=== PATIENT | male | born 1945 | race Caucasian/White ===

== ENCOUNTER 2020-05-25 09:53 | Inpatient (IN) | payer MEDICARE, BC ==
[~2020-05-25] VITALS: Ht 177.8 cm; Wt 68.6 kg
--- NOTE | 2020-05-25 10:10 | NUR ---
patient came in to the er c/o "Been Sick X1wk Dx COVID positive sunday NOW worse coughing a lot. 845 on room air. on 02 @4lpm via nc. Connected to the monitor and pulse ox, kept comfortable, will continue to monitor accordingly.
[2020-05-25] MEDS ORDERED: ACETAMINOPHEN ES 500 MG TABLET ONE (10:55)
[2020-05-25] MEDS ORDERED: IV NS 0.9% 500 ML IV SCH (11:00)
[2020-05-25] MEDS ORDERED: ACETAMINOPHEN ES 500 MG TABLET PO ONE (11:00)
[2020-05-25 11:20] LABS: MEAN CORPUSCULAR VOLUME 89 fL (80-96)
[2020-05-25 11:23] LABS: BASOPHILS % (AUTO) 0.1 % (0.0-2.0); HEMATOCRIT 42 % (39-51); LYMPHOCYTES # (AUTO) 0.2 /CMM (0.8-4.8); MEAN CORPUSCULAR HGB CONC 33 g/dl (31.0-36.0); MONOCYTES # (AUTO) 0.5 /CMM (0.1-1.30); MONOCYTES % (AUTO) 6.4 % (2.0-12.0); NEUTROPHILS # (AUTO) 7.5 /CMM (1.8-8.9); NEUTROPHILS % (AUTO) 91.5 % (43.0-81.0); PLATELET COUNT (AUTO) 191 /CMM (150-450); RED BLOOD CELL COUNT(AUTO) 4.72 MIL/uL (4.5-6.0); WHITE BLOOD COUNT (AUTO) 8.1 K/uL (4.3-11.0)
[2020-05-25 11:25] LABS: CALCIUM, SERUM 8.6 mg/dL (8.5-10.1); CARBON DIOXIDE 26 mmol/L (21-32); CHLORIDE 103 mmol/L (98-107); CREATININE 1.7 mg/dL (0.6-1.3); GLUCOSE 182 mg/dL (74-106); SODIUM SERUM 139 mmol/L (136-145); UREA NITROGEN, BLOOD 38 mg/dL (7-18)
[2020-05-25 11:36] LABS: BILIRUBIN,TOTAL 0.6 mg/dL (0.2-1.0)
[2020-05-25 11:37] LABS: ALANINE AMINOTRANSFERASE 53 U/L (12-78); ALBUMIN 3.3 g/dL (3.4-5.0); ALKALINE PHOSPHATASE 51 U/L (46-116); ASPARTATE AMINOTRANSFERASE 38 U/L (15-37); B-TYPE NATRIURETIC PEPTIDE 971 PG/ML (0-125); TOTAL PROTEIN, SERUM 7.4 g/dL (6.4-8.2)
--- NOTE | 2020-05-25 11:38 | NUR ---
LACTIC ACID 2.4
--- NOTE | 2020-05-25 11:51 | NUR ---
PT WANTS DAUGHTER, THOMAS, TO BE UPDATED.
[2020-05-25 11:56] LABS: CREATINE KINASE, TOTAL 140 U/L (39-308); FERRITIN 765 ng/mL (8-388)
[2020-05-25 11:57] LABS: D-DIMER 0.85 mg/L(FEU (0.17-0.50)
[2020-05-25] MEDS ORDERED: IV NS 0.9% 500 ML IV ONE (12:00)
[2020-05-25 12:04] LABS: C-REACTIVE PROTEIN 3.9 mg/dL (0.0-0.9)
[2020-05-25] MEDS ORDERED: IV NS 0.9% 1,000 ML BAG IV ONE (13:30)
[2020-05-25 13:56] LABS: BILIRUBIN,DIRECT 0.2 mg/dL (0.0-0.2)
[2020-05-25] MEDS ORDERED: DEXAMETHASONE SOD PHOSPHATE 6 MG in IV D5W 50 ML IV SCH (14:00)
[2020-05-25] MEDS ORDERED: IV NS 0.9% 1,000 ML IV PRN (14:00)
[2020-05-25] MEDS: CEFTRIAXONE 1 G in IV D5W 50 ML IV SCH (14:00)
[2020-05-25] MEDS ORDERED: ALBUTEROL SULFATE 8 GM HFA.AER.AD IH PRN (14:00)
[2020-05-25] MEDS ORDERED: ACETAMINOPHEN 650 MG/SUPP.RECT RC PRN (14:00)
[2020-05-25] MEDS ORDERED: ONDANSETRON 4 MG TAB.RAPDIS SL PRN (14:00)
[2020-05-25 14:25] LABS: BILIRUBIN,URINE Negative (NEGATIVE); COLOR,URINE YELLOW (YELLOW); LEUKOCYTE ESTERASE ,URINE Negative (NEGATIVE); NITRITE, URINE Negative (NEGATIVE); PROTEIN,URINE 100 mg/dl (NEGATIVE); UGLUCOSE 100 MG/DL mg/dL (NEGATIVE); UROBILINOGEN,URINE 0.2 EU/dL (0.2)
[2020-05-25 14:26] LABS: BACTERIA,URINE None seen /HPF (None Seen); RBC,URINE 0-2 /HPF (0-2); WBC,URINE 0-2 /HPF (0-3)
[2020-05-25 14:27] LABS: SQUAMOUS EPITHELIAL CELL,UR None Seen /HPF (None Seen)
[2020-05-25] MEDS ORDERED: DEXAMETHASONE SOD PHOSPHATE 10 MG/ML VIAL IV SCH (14:30)
[2020-05-25] MEDS: AZITHROMYCIN 500 MG in IV D5W 250 ML IV SCH (14:31)
--- NOTE | 2020-05-25 16:49 | NUR ---
LEILA IS DAUGHTER [phone]
[2020-05-25] MEDS ORDERED: DEXAMETHASONE SOD PHOSPHATE 10 MG/ML VIAL ONE (17:04)
[2020-05-25] MEDS: DEXAMETHASONE SOD PHOSPHATE 10 MG/ML VIAL IV SCH (17:10)
[2020-05-25] MEDS ORDERED: GUAIFENESIN/D-METHORPHAN HB 5 ML UDC ONE (18:39)
[2020-05-25] MEDS: GUAIFENESIN/CODEINE 10 ML UDC PO PRN (18:42)
[2020-05-25] MEDS ORDERED: ENOXAPARIN SODIUM 30 MG/0.3 ML DISP.SYRIN SQ SCH (19:00)
[2020-05-25] MEDS ORDERED: ZOLPIDEM TARTRATE 5 MG TABLET PO ONE ×2 (19:00)
--- NOTE | 2020-05-25 19:37 | NUR ---
report given to Conor GROVER for liat
--- NOTE | 2020-05-25 19:45 | NUR ---
emptied out urine, 350mL
--- NOTE | 2020-05-25 19:48 | NUR ---
Patient is AAOX4. NO SOB. BREATHING EVENLY AND UNLABORED ON 3l of n/c. tolerating well at 95%. patient is connected to the monitor. Patient is asking for cough medication. Patient explained to unable to give patient cough medication because he is not due for one yet. Patient verbalizes understanding.
[2020-05-25] MEDS ORDERED: ENOXAPARIN SODIUM 30 MG/0.3 ML DISP.SYRIN ONE (20:25)
--- NOTE | 2020-05-25 22:59 | NUR ---
emptied out urine 200mL
--- NOTE | 2020-05-26 01:12 | NUR ---
TELE 207-2
--- NOTE | 2020-05-26 02:33 | NUR ---
REPORT GIVEN TO MALORIE GROVER FOR CONTINUITY OF CARE.
[2020-05-26 02:55] VITALS: BP 145/86
--- NOTE | 2020-05-26 02:55 | NUR ---
FLOORWORKER DISTRIBUTORTRAFFIC RATE CLERK NOTE RECEIVED PATIENT VIA GURNEY. AMBULATED TO BED WITH ASSISTANCE. A/OX4. ON OXYGEN 6L/MIN VIA NASAL CANNULA. RESPIRATIONS ARE EVEN AND UNLABORED. O2 SATURATION IS 86%. PLACED PATIENT ON NONREBREATHER 15L/MIN NOW SATURATING 96%. WILL INFORM MD OF CHANGE IN CONDITION. NO C/O PAIN AT THIS TIME. PATIENT IS REQUESTING ROBITUSSIN. EXTERNAL TELE MONITOR PLACED AND READ SINUS RHYTHM WITH BBB HR 62. IN NO APPARENT DISTRESS AT THIS TIME. IV ACCESS IN LAC #18 PATENT AND SALINE LOCKED. BUILDING MAINTENANCE SUPERVISOR OBTAINED VITALS AND COMPLETED BELONGINGS LIST. INITIAL PHYSICAL ASSESSMENT COMPLETED, SKIN ASSESSMENT COMPLETED, PHOTOS TAKEN AND PLACED IN CHART. BED IS LOW AND LOCKED, HOB ELEVATED IN HIGH FOWLERS, SIDE RIALS UP X2, CALL LIGHT WITHIN REACH. INFORMED DIE TRY OUT WORKER STAMPING LIGHT USE. WILL CONTINUE TO MONITOR THROUGHOUT SHIFT.
--- NOTE | 2020-05-26 03:06 | NUR ---
PATIENT TAKEN UP TO ASSIGNED ROOM FOR TIMOTEO.
[2020-05-26] MEDS: GUAIFENESIN/CODEINE 10 ML UDC PO PRN ×2 (03:29→14:03)
--- NOTE | 2020-05-26 03:30 | NUR ---
TELE/RN NOTES PATIENT COMPLAINING OF COUGH AND IS REQUESTING FOR COUGH MEDICINE. PATIENT GIVEN ROBITUSSIN AC SYRUP 10 ML PO. PATIENT IN NO SIGNS OF DISTRESS.
--- NOTE | 2020-05-26 04:03 | NUR ---
singing telegram performer note informed jose elias maynard DNP that ER reported patient is on 6l nasal cannula saturating 92%, when patient arrive to unit he was saturating 86% on 6L nasal cannula. informed Jose Elias that patient is now on 15L nonrebreather saturating 96%. aware, no new orders received.
[2020-05-26] MEDS ORDERED: ATOR20TA PO (04:17)
[2020-05-26] MEDS ORDERED: OLME40TA12 PO (04:17)
[2020-05-26 04:30] VITALS: BP 145/86
[2020-05-26 06:45] LABS: BASOPHILS % (AUTO) 0.1 % (0.0-2.0); HEMATOCRIT 37 % (39-51); HEMOGLOBIN 12.4 g/dL (13.5-17.5); LYMPHOCYTES # (AUTO) 0.3 /CMM (0.8-4.8); LYMPHOCYTES % (AUTO) 2.8 % (20.0-44.0); MEAN CORPUSCULAR HGB CONC 33 g/dl (31.0-36.0); MEAN CORPUSCULAR VOLUME 88 fL (80-96); MONOCYTES # (AUTO) 0.5 /CMM (0.1-1.30); NEUTROPHILS % (AUTO) 91.1 % (43.0-81.0); PLATELET COUNT (AUTO) 199 /CMM (150-450); RED BLOOD CELL COUNT(AUTO) 4.24 MIL/uL (4.5-6.0); WHITE BLOOD COUNT (AUTO) 8.8 K/uL (4.3-11.0)
--- NOTE | 2020-05-26 07:13 | NUR ---
HIDE OR SKIN BUFFER CLOSING NOTE PATIENT RESTING IN BED. A/OX4. ON OXYGEN 15L NONREBREATHER. NO RESP DISTRESS. NO C/O PAIN . EXTERNAL TELE MONITOR PLACED AND READ SINUS RHYTHM. NO DISTRESS. IV ACCESS MAINTAINED IN LAC #18 RUNNING NS@50ML/HR BED IS LOW AND LOCKED, HOB ELEVATED IN HIGH FOWLERS, SIDE RIALS UP X2, CALL LIGHT WITHIN REACH. INFORMED SYSTEMS COORDINATOR LIGHT USE. WILL ENDORSE TO NEXT SHIFT.
[2020-05-26 07:17] LABS: ALBUMIN 2.7 g/dL (3.4-5.0); BILIRUBIN,TOTAL 0.5 mg/dL (0.2-1.0); CALCIUM, SERUM 8.2 mg/dL (8.5-10.1); CREATININE 1.3 mg/dL (0.6-1.3); POTASSIUM 4.4 mmol/L (3.5-5.1); TOTAL PROTEIN, SERUM 6.3 g/dL (6.4-8.2)
--- NOTE | 2020-05-26 07:50 | NUR ---
PROGRAM ATTENDANT OPENING NOTE PATIENT IS IN BED RESTING. PATIENT IS IN NO ACUTE DISTRESS. PATIENT IS ON 15L NON REBREATHER MASK. NO SOB NOTED. HOB ELEVATED. PATIENT IS ON TELE MONITOR READING SR 64 BBB. SAFETY PRECAUTIONS ARE IN PLACE. BED IS LOCKED AND IN THE LOWEST POSITION. SIDE RAILS ARE UP. CALL LIGHT WITHIN REACH. CONTINUE CLOSELY MONITORING PATIENT THOUGHT OUT THE SHIFT.
--- NOTE | 2020-05-26 08:42 | NUR ---
WOUND CARE CONSULT: REVIEWED CHART, NURSING DOCUMENTATION AND PHOTO WHICH INDICATES LOWER LEG DISCOLORATION,PRESENT ON ADMISSION. CURRENT DEJA SCORE IS 20. WILL SEE PRN.
[2020-05-26] MEDS: DEXAMETHASONE SOD PHOSPHATE 10 MG/ML VIAL IV SCH (08:56)
[2020-05-26] MEDS ORDERED: REMDESIVIR (CHARGED) 200 MG, *LOADING DOSE 1 EA in IV NS 0.9% 210 ML IV ONE (11:00)
[2020-05-26] MEDS: ENOXAPARIN SODIUM 30 MG/0.3 ML DISP.SYRIN SQ SCH ×2 (11:12→20:31)
[2020-05-26] MEDS: ATORVASTATIN 10 MG TABLET PO SCH (12:24)
[2020-05-26] MEDS: LOSARTAN POTASSIUM 50 MG TABLET PO SCH (12:25)
[2020-05-26] MEDS ORDERED: GUAIFENESIN 300 MG/15 ML UDC PO PRN (12:30)
[2020-05-26] MEDS: CEFTRIAXONE 1 G in IV D5W 50 ML IV SCH (13:44)
[2020-05-26] MEDS: AZITHROMYCIN 500 MG in IV D5W 250 ML IV SCH (14:49)
[2020-05-26 17:20] VITALS: BP 142/79
[2020-05-26 17:35] VITALS: BP 159/85
--- NOTE | 2020-05-26 18:59 | NUR ---
DELIVERY MAN CLOSING NOTE PATIENT KEPT CLEAN AND DRY THOROUGH OUT THE SHIFT. NO SIGNS OF CUTE DISTRESS NOTED. PATIENT IS ON OXYGEN 15L NRB MASK. HOB ELEVATED. PATIENT IS ON JOB ORDER CLERK READING SR. SAFETY PRECAUTIONS ARE IN PLACE. BED IS LOCKED AND IN LOWEST POSITION. SIDE RAILS ARE UP, CALL LIGHT WITHIN REACH. ENDORSE PATIENT FOR CONTINUES CARE TO TEST ENGINEERING MANAGER NURSE.
--- NOTE | 2020-05-26 19:00 | NUR ---
RN NOTE RECEIVED PATIENT IN BED, ON HIGH BOWEN'S, AO X 3-4. PATIENT IN NO S/SX OF ACUTE DISTRESS AT THIS TIME. PATIENT'S BREATHING IS EVEN AND UNLABORED. PATIENT IS ON 15 L OF OXYGEN VIA NON REBREATHER MASK, TOLERATING WELL, OXYGEN SATURATION IS AT 94%. PATIENT ON TELE MONITOR READING SR WITH BBB, HR IS 63. PATIENT IS AMBULATORY WITH ASSISTANCE. NOTED IV SITE AT LAC 18G, PATENT AND FLUSHING WELL, NO S/S OF INFECTION OR INFILTRATION. SAFETY MEASURES IMPLEMENTED PER PROTOCOL. PATIENT BED ALARM IS ON. HEAD OF BED ELEVATED. BED IS LOCKED, IN LOWEST POSITION AND SIDE RAILS UP. CALL LIGHT WITHIN REACH OF THE PATIENT. WILL CONTINUE TO MONITOR AND REASSESS FOR ANY CHANGES.
[2020-05-26 20:00] VITALS: BP 167/79
--- NOTE | 2020-05-26 20:00 | NUR ---
RN NOTE NOTED BP OF 167/79. COMFORT MEASURES PROVIDED. HOB ELEVATED. BP RECHECKED AND RESULTED, 150/94.
[2020-05-27] VITALS (8 sets, daily range): BP systolic 103–167; BP diastolic 65–90
--- NOTE | 2020-05-27 00:30 | NUR ---
RN NOTE NOTED BP OF 167/81 AT 0000 AFTER AMBULATING TO THE RESTROOM. NO COMPLAINTS OF PAIN. NO SIGN OF DISTRESS NOTED. BP RECHECKED AT 0030 AND REVEALED 144/88.
[2020-05-27 07:53] LABS: HEMATOCRIT 39 % (39-51); HEMOGLOBIN 12.9 g/dL (13.5-17.5); LYMPHOCYTES # (AUTO) 0.4 /CMM (0.8-4.8); MEAN CORPUSCULAR HGB CONC 33 g/dl (31.0-36.0); MEAN CORPUSCULAR VOLUME 90 fL (80-96); MONOCYTES # (AUTO) 0.7 /CMM (0.1-1.30); MONOCYTES % (AUTO) 6.6 % (2.0-12.0); NEUTROPHILS # (AUTO) 9.5 /CMM (1.8-8.9); NEUTROPHILS % (AUTO) 89.4 % (43.0-81.0); PLATELET COUNT (AUTO) 218 /CMM (150-450); RED BLOOD CELL COUNT(AUTO) 4.35 MIL/uL (4.5-6.0); WHITE BLOOD COUNT (AUTO) 10.7 K/uL (4.3-11.0)
--- NOTE | 2020-05-27 08:00 | NUR ---
PLUMBER HELPER OPENING NOTE PATIENT IS IN BED RESTING. PATIENT IS IN NO ACUTE DISTRESS. PATIENT IS ON 15L NON REBREATHER MASK. WITH SOB WHEN GOING TO THE TOILET WITH O2 NRB MASK AT 15L.NO SOB NOTED WHEN AT REST BUT DESATURATES TO 85-88%. HOB ELEVATED. PATIENT IS ON TELE MONITOR READING SR 74 BBB. SAFETY PRECAUTIONS ARE IN PLACE. BED IS LOCKED AND IN THE LOWEST POSITION. SIDE RAILS ARE UP. CALL LIGHT WITHIN REACH. CONTINUE CLOSELY MONITORING
[2020-05-27 08:19] LABS: ALBUMIN 2.6 g/dL (3.4-5.0); BILIRUBIN,DIRECT 0.2 mg/dL (0.0-0.2); BILIRUBIN,TOTAL 0.5 mg/dL (0.2-1.0); CALCIUM, SERUM 8.6 mg/dL (8.5-10.1); CREATININE 1.2 mg/dL (0.6-1.3); POTASSIUM 4.2 mmol/L (3.5-5.1); TOTAL PROTEIN, SERUM 6.4 g/dL (6.4-8.2)
[2020-05-27] MEDS: LOSARTAN POTASSIUM 50 MG TABLET PO SCH (10:19)
[2020-05-27] MEDS: DEXAMETHASONE SOD PHOSPHATE 10 MG/ML VIAL IV SCH (10:19)
[2020-05-27] MEDS: ATORVASTATIN 10 MG TABLET PO SCH (10:19)
[2020-05-27] MEDS: ENOXAPARIN SODIUM 30 MG/0.3 ML DISP.SYRIN SQ SCH ×2 (10:22→20:32)
[2020-05-27] MEDS: GUAIFENESIN/CODEINE 10 ML UDC PO PRN (10:25)
--- NOTE | 2020-05-27 12:00 | NUR ---
TRIED FEEDING PT WITH O2 NASAL CANNULA AT 15L AND PT DESATURATES AT 70%.PLACED PT BACK TO NRB MASK AT 15L IN BETWEEN FEEDINGS
[2020-05-27] MEDS: REMDESIVIR (CHARGED) 100 MG in IV NS 0.9% 100 ML IV SCH (12:33)
[2020-05-27] MEDS: CEFTRIAXONE 1 G in IV D5W 50 ML IV SCH (14:03)
[2020-05-27] MEDS: AZITHROMYCIN 500 MG in IV D5W 250 ML IV SCH (15:26)
--- NOTE | 2020-05-27 16:00 | NUR ---
ATTEMPTED TO TITRATE PT'S O2 NRB TO 13L AND PT DESATURATES TO 82%.PLACE PT BACK TO 15 LITERS NRB MASK
--- NOTE | 2020-05-27 18:00 | NUR ---
NOTIFIED SUSY HOLDER OF PT'S BP 164/90 HR 77 WITH NO NEW ORDER.
[2020-05-27] MEDS ORDERED: hydrALAZINE HCL 10 MG TABLET PO PRN (19:30)
--- NOTE | 2020-05-27 19:35 | NUR ---
TELE/RN OPENING NOTES: RECEIVED PATIENT IN BED, ON HIGH BOWEN'S, VERBALLY RESPONSIVE AND ABLE TO MAKE NEEDS KNOWN. A/O X 4. NO S/S OF ACUTE DISTRESS AT THIS TIME. PATIENT'S BREATHING IS EVEN AND UNLABORED. CURRENTLY ON 15 L OF OXYGEN VIA NON REBREATHER MASK, TOLERATING WELL, OXYGEN SATURATION IS AT 92%. PATIENT ON TELE MONITOR READING SR HR ON THE 60S. PATIENT IS AMBULATORY WITH ASSISTANCE. PER DAY SHIFT RN, AFTER AMBULATING PATIENT DESATS TO 89%-88%. IV SITE AT LAC 18G, PATENT AND FLUSHING WELL, NO S/S OF INFECTION OR INFILTRATION. SAFETY MEASURES IMPLEMENTED PER PROTOCOL. BED ALARM IS ON. HEAD OF BED ELEVATED. BED IS LOCKED, IN LOWEST POSITION AND SIDE RAILS UP. CALL LIGHT WITHIN REACH OF THE PATIENT. WILL CONTINUE TO MONITOR AND REASSESS FOR ANY CHANGES.
[2020-05-28] VITALS (7 sets, daily range): BP systolic 108–172; BP diastolic 74–93
--- NOTE | 2020-05-28 07:10 | NUR ---
RN OPENING NOTES RECEIVED PT RESTING IN BED AT THIS TIME. PT IS AOX2-3. NO SOB NOTED, NO S/S OF ANY APPARENT DISTRESS NOTED. NO C/O PAIN NOTED AT THIS TIME. RESPIRATIONS ARE EVEN AND UNLABORED. FLOW OXYGEN AT 60LPM WITH FIO2 @ 100%.PT NOTED ON 15LPM NON REBREATHER SATURATING IN THE 90S. PT ON EXTERNAL FOREIGN LANGUAGE INSTRUCTOR READING SR IN THE 80s. IV ACCESS NOTED IN LAC G#18, INTACT, PATENT AND FLUSHING WELL. ASPIRATION AND SAFETY PRECAUTION IN PLACE AND MAINTAINED AT ALL TIMES. BED IN LOWEST LOCKED POSITION, HOB ELEVATED, SIDE RAILS UP X 2, CALL LIGHT AND TABLE WITHIN REACH . WILL CONTINUE WITH PLAN OF CARE. Addendum: 05/28/20 at 2012 by MATTHEW CHINO RN RN OPENING NOTES RECEIVED PT AWAKE IN BED AT THIS TIME. PT IS AOX4. PT ABLE TO VERBALIZE NEEDS. NO SOB NOTED, NO S/S OF ANY APPARENT DISTRESS NOTED. NO C/O PAIN NOTED AT THIS TIME. RESPIRATIONS ARE EVEN AND UNLABORED. PT NOTED ON 15LPM NON REBREATHER. PT ON EXTERNAL FOREIGN LANGUAGE INSTRUCTOR READING SR IN THE 60s. IV ACCESS NOTED IN LAC G#18, INTACT, PATENT AND FLUSHING WELL. ASPIRATION AND SAFETY PRECAUTION IN PLACE AND MAINTAINED AT ALL TIMES. BED IN LOWEST LOCKED POSITION, HOB ELEVATED, SIDE RAILS UP X 2, CALL LIGHT AND TABLE WITHIN REACH . WILL CONTINUE TO MONITOR
--- NOTE | 2020-05-28 07:11 | NUR ---
TELE/RN CLOSING NOTES: PT REMAINED STABLE THROUGHOUT THE SHIFT. NO SIGNIFICANT CHANGES IN CONDITION. ALL NURSING NEEDS MET AND RENDERED. WILL CONTINUE PLAN OF CARE AND ENDORSE TO DAYSHIFT FOR TIM[facility].
[2020-05-28 07:43] LABS: BASOPHILS % (AUTO) 0.3 % (0.0-2.0); HEMATOCRIT 42 % (39-51); HEMOGLOBIN 14.1 g/dL (13.5-17.5); LYMPHOCYTES # (AUTO) 0.3 /CMM (0.8-4.8); LYMPHOCYTES % (AUTO) 2.8 % (20.0-44.0); MEAN CORPUSCULAR HGB CONC 33 g/dl (31.0-36.0); MEAN CORPUSCULAR VOLUME 88 fL (80-96); MONOCYTES # (AUTO) 0.9 /CMM (0.1-1.30); MONOCYTES % (AUTO) 8.2 % (2.0-12.0); NEUTROPHILS # (AUTO) 9.3 /CMM (1.8-8.9); NEUTROPHILS % (AUTO) 88.7 % (43.0-81.0); PLATELET COUNT (AUTO) 248 /CMM (150-450); RED BLOOD CELL COUNT(AUTO) 4.81 MIL/uL (4.5-6.0); WHITE BLOOD COUNT (AUTO) 10.4 K/uL (4.3-11.0)
[2020-05-28 08:19] LABS: ALBUMIN 2.5 g/dL (3.4-5.0); BILIRUBIN,DIRECT 0.3 mg/dL (0.0-0.2); BILIRUBIN,TOTAL 0.6 mg/dL (0.2-1.0); CREATININE 1.2 mg/dL (0.6-1.3); POTASSIUM 4.4 mmol/L (3.5-5.1); TOTAL PROTEIN, SERUM 6.6 g/dL (6.4-8.2)
[2020-05-28] MEDS: LOSARTAN POTASSIUM 50 MG TABLET PO SCH (09:36)
[2020-05-28] MEDS: ENOXAPARIN SODIUM 30 MG/0.3 ML DISP.SYRIN SQ SCH ×2 (09:37→21:49)
[2020-05-28] MEDS: DEXAMETHASONE SOD PHOSPHATE 10 MG/ML VIAL IV SCH (09:37)
[2020-05-28] MEDS: ATORVASTATIN 10 MG TABLET PO SCH (09:37)
[2020-05-28] MEDS: REMDESIVIR (CHARGED) 100 MG in IV NS 0.9% 100 ML IV SCH (11:24)
[2020-05-28] MEDS: ACETAMINOPHEN 325 MG TABLET PO PRN (13:07)
--- NOTE | 2020-05-28 13:10 | NUR ---
PT C/O OF BACK PAIN OF 3/10 AT THIS TIME, VS WNL. PER PT REQUEST, TYLENOL 650MG PO Q6H PRN ADMINISTERED AT THIS TIME PER ORDER, WILL CONTINUE TO MONITOR
[2020-05-28] MEDS: CEFTRIAXONE 1 G in IV D5W 50 ML IV SCH (14:17)
[2020-05-28] MEDS: AZITHROMYCIN 500 MG in IV D5W 250 ML IV SCH (15:23)
--- NOTE | 2020-05-28 19:10 | NUR ---
RN CLOSING NOTES PT AWAKE IN BED AT THIS TIME. PT REMAINED STABLE THROUGHOUT SHIFT. PT's CARE, NEEDS, MEDICATIONS AND TREATMENT ADMINISTERED ANTICIPATED PER ORDER. PT MOTIVATED TO SELF CARE AND ASSISTED TO BATHROOM. SAFETY PRECAUTION IN PLACE AND MAINTAINED AT ALL TIMES. BED IN LOWEST LOCKED POSITION, HOB ELEVATED, SIDE RAILS UP X 2, CALL LIGHT AND TABLE WITHIN REACH. WILL ENDORSE TO SLATE SPLITTING SUPERVISOR NURSE FOR TIMOTEO
--- NOTE | 2020-05-28 19:11 | NUR ---
TELE/RN OPENING NOTES: RECEIVED PATIENT IN BED, ON HIGH BOWEN'S, VERBALLY RESPONSIVE AND ABLE TO MAKE NEEDS KNOWN. A/O X 4. NO S/S OF ACUTE DISTRESS AT THIS TIME. PATIENT'S BREATHING IS EVEN AND UNLABORED. CURRENTLY ON 15 L OF OXYGEN VIA NON REBREATHER MASK, TOLERATING WELL, OXYGEN SATURATION IS AT 95%. PATIENT ON TELE MONITOR READING SR HR ON THE 60S. COMPLAINS OF MILD PAIN, DOESN'T ASK FOR PAIN MEDS AT THIS TIME. PATIENT IS AMBULATORY WITH ASSISTANCE. IV SITE AT LAC 18G, PATENT AND FLUSHING WELL, NO S/S OF INFECTION OR INFILTRATION. SAFETY MEASURES IMPLEMENTED PER PROTOCOL. BED ALARM IS ON. HEAD OF BED ELEVATED. BED IS LOCKED, IN LOWEST POSITION AND SIDE RAILS UP. CALL LIGHT WITHIN REACH OF THE PATIENT. WILL CONTINUE TO MONITOR AND REASSESS FOR ANY CHANGES.
[2020-05-29] VITALS: BP 185/80
[2020-05-29 04:00] VITALS: BP 124/85
--- NOTE | 2020-05-29 06:19 | NUR ---
TELE/RN OPENING NOTES: RECEIVED PT AWAKE IN BED AT THIS TIME. PT IS AOX4. PT ABLE TO MAKE NEEDS KNOWN. NO SOB NOTED, NO S/S OF ANY ACUTE DISTRESS NOTED. NO C/O PAIN AT THIS TIME. RESPIRATIONS ARE EVEN AND UNLABORED. PT NOTED ON 15LPM NON REBREATHER SATING AT 93%. PT ON EXTERNAL SENIOR STACK ENGINEER READING SR WITH BBB 63. IV ACCESS NOTED IN LAC G#18, INTACT, PATENT AND FLUSHING WELL. ASPIRATION, REPIRATORY AND SAFETY PRECAUTION IN PLACE AND MAINTAINED AT ALL TIMES. BED IN LOWEST LOCKED POSITION, HOB ELEVATED, SIDE RAILS UP X 2, CALL LIGHT AND TABLE WITHIN REACH . WILL CONTINUE TO MONITOR
--- NOTE | 2020-05-29 07:10 | NUR ---
RN OPENING NOTES RECEIVED PT AWAKE IN BED AT THIS TIME. PT IS AOX4. PT ABLE TO MAKE NEEDS KNOWN. NO SOB NOTED, NO S/S OF ANY ACUTE DISTRESS NOTED. NO C/O PAIN AT THIS TIME. RESPIRATIONS ARE EVEN AND UNLABORED. PT NOTED ON 15LPM NON REBREATHER. PT ON EXTERNAL EGG SORTER READING SR WITH PVCS 78. IV ACCESS NOTED IN LAC G#18, INTACT, PATENT AND FLUSHING WELL. ASPIRATION, REPIRATORY AND SAFETY PRECAUTION IN PLACE AND MAINTAINED AT ALL TIMES. BED IN LOWEST LOCKED POSITION, HOB ELEVATED, SIDE RAILS UP X 2, CALL LIGHT AND TABLE WITHIN REACH . WILL CONTINUE TO MONITOR
--- NOTE | 2020-05-29 07:10 | NUR ---
RN OPENING NOTES RECEIVED PT AWAKE IN BED AT THIS TIME. PT IS AOX4. PT ABLE TO MAKE NEEDS KNOWN. NO SOB NOTED, NO S/S OF ANY ACUTE DISTRESS NOTED. NO C/O PAIN AT THIS TIME. RESPIRATIONS ARE EVEN AND UNLABORED. PT NOTED ON 15LPM NON REBREATHER. PT ON EXTERNAL MANAGER LABOR RELATIONS READING SR WITH PVCS 78. IV ACCESS NOTED IN LAC G#18, INTACT, PATENT AND FLUSHING WELL. ASPIRATION, RESPIRATORY AND SAFETY PRECAUTION IN PLACE AND MAINTAINED AT ALL TIMES. BED IN LOWEST LOCKED POSITION, HOB ELEVATED, SIDE RAILS UP X 2, CALL LIGHT AND TABLE WITHIN REACH . WILL CONTINUE TO MONITOR
--- NOTE | 2020-05-29 07:52 | NUR ---
TELE/RN CLOSING NOTES: PT REMAINED STABLE THROUGHOUT THE SHIFT. WILL CONTINUE TO TITRATE PATIENT TOLERATED. ALL DUE MEDS GIVEN ORDERED. NO SIGNIFICANT CHANGES IN CONDITION. ALL NURSING NEEDS MET AND RENDERED. WILL CONTINUE PLAN OF CARE. SAFETY MEASURES IN PLACE. BED IN LOW, LOCKED POSITION WITH SR UPX2. ENDORSE TO DAYSHIFT FOR TIMOTE[facility].
[2020-05-29 08:00] VITALS: BP 166/95
[2020-05-29 08:30] LABS: BASOPHILS % (AUTO) 0.2 % (0.0-2.0); HEMATOCRIT 42 % (39-51); HEMOGLOBIN 13.6 g/dL (13.5-17.5); LYMPHOCYTES # (AUTO) 0.4 /CMM (0.8-4.8); LYMPHOCYTES % (AUTO) 3.9 % (20.0-44.0); MEAN CORPUSCULAR HGB CONC 32 g/dl (31.0-36.0); MEAN CORPUSCULAR VOLUME 90 fL (80-96); MONOCYTES # (AUTO) 1.1 /CMM (0.1-1.30); NEUTROPHILS # (AUTO) 9.5 /CMM (1.8-8.9); NEUTROPHILS % (AUTO) 85.9 % (43.0-81.0); PLATELET COUNT (AUTO) 255 /CMM (150-450); RED BLOOD CELL COUNT(AUTO) 4.68 MIL/uL (4.5-6.0)
[2020-05-29] MEDS: LOSARTAN POTASSIUM 50 MG TABLET PO SCH (09:53)
[2020-05-29] MEDS: ATORVASTATIN 10 MG TABLET PO SCH (09:53)
[2020-05-29] MEDS: DEXAMETHASONE SOD PHOSPHATE 10 MG/ML VIAL IV SCH (09:53)
[2020-05-29] MEDS: ENOXAPARIN SODIUM 30 MG/0.3 ML DISP.SYRIN SQ SCH ×2 (09:54→21:36)
[2020-05-29 10:24] LABS: ALBUMIN 2.3 g/dL (3.4-5.0); BILIRUBIN,DIRECT 0.2 mg/dL (0.0-0.2); BILIRUBIN,TOTAL 0.6 mg/dL (0.2-1.0); CALCIUM, SERUM 8.6 mg/dL (8.5-10.1); CREATININE 1.3 mg/dL (0.6-1.3); POTASSIUM 4.6 mmol/L (3.5-5.1); TOTAL PROTEIN, SERUM 6.2 g/dL (6.4-8.2)
[2020-05-29] MEDS: REMDESIVIR (CHARGED) 100 MG in IV NS 0.9% 100 ML IV SCH (12:15)
[2020-05-29] MEDS: ACETAMINOPHEN 325 MG TABLET PO PRN ×2 (13:19→21:31)
--- NOTE | 2020-05-29 13:20 | NUR ---
PT C/O OF GENERALIZED PAIN OF 3/10 AT THIS TIME, VS WNL. PER PT REQUEST, TYLENOL 650MG PO Q6H PRN ADMINISTERED AT THIS TIME PER ORDER, WILL CONTINUE TO MONITOR
[2020-05-29] MEDS: CEFTRIAXONE 1 G in IV D5W 50 ML IV SCH (14:28)
[2020-05-29] MEDS: AZITHROMYCIN 500 MG in IV D5W 250 ML IV SCH (15:28)
[2020-05-29 17:25] LABS: ABG BASE EXCESS -0.9 mmol/L; ABG OXYGEN SATURATION 93.2 % (92.0-98.5); ABG PCO2 32.4 mmHg (35.0-45.0); ABG PH 7.453 (7.350-7.450); ABG PO2 65.6 mmHg (75.0-100.0); COHb 0.3 % (0.5-1.5); MetHb 0.4 % (0.0-1.5); O2Hb 92.5 % (94.0-97.0); SITE, ABG Right Radial; VENT MODE, BG NRB
[2020-05-29] MEDS: LISINOPRIL (10MG) 10 MG TABLET PO SCH (17:58)
--- NOTE | 2020-05-29 19:24 | NUR ---
TELE/RN OPENING NOTES: RECEIVED PT AWAKE IN BED AT THIS TIME. PT IS AOX4. PT ABLE TO MAKE NEEDS KNOWN. NO SOB NOTED, NO S/S OF ANY ACUTE DISTRESS NOTED. NO C/O PAIN AT THIS TIME. RESPIRATIONS ARE EVEN AND UNLABORED. PT NOTED ON 15LPM NON REBREATHER SATING AT 93%. PT ON EXTERNAL KILN CLEANER READING SR WITH BBB 63. IV ACCESS NOTED IN LAC G#18, INTACT, PATENT AND FLUSHING WELL. ASPIRATION, REPIRATORY AND SAFETY PRECAUTION IN PLACE AND MAINTAINED AT ALL TIMES. BED IN LOWEST LOCKED POSITION, HOB ELEVATED, SIDE RAILS UP X 2, CALL LIGHT AND TABLE WITHIN REACH . WILL CONTINUE TO MONITOR
[2020-05-29 20:00] VITALS: BP 150/91
--- NOTE | 2020-05-29 20:19 | NUR ---
PEOPLESOFT FSCM DEVELOPER CLOSING NOTES PT AWAKE IN BED AT THIS TIME. PT REMAINED STABLE THROUGHOUT SHIFT. ALL CARE, NEED, MEDICATIONS AND TREATMENT ADMINISTERED ANTICIPATED PER ORDER. PT KEPT CLEAN AND DRY. PT ASSISTED WITH BATHROOM PRIVILEGES. ASPIRATION, RESPIRATORY SAFETY PRECAUTION IN PLACE AND MAINTAINED AT ALL TIMES. BED IN LOWEST LOCKED POSITION, HOB ELEVATED, SIDE RAILS UP X 2, CALL LIGHT AND TABLE WITHIN REACH. ENDORSED TO DETECTIVE NURSE FOR TIMOTEO
[2020-05-30] VITALS (7 sets, daily range): BP systolic 141–160; BP diastolic 67–85
--- NOTE | 2020-05-30 06:21 | NUR ---
TELE/RN CLOSING NOTES: PT REMAINED STABLE THROUGHOUT THE SHIFT. WILL CONTINUE TO TITRATE PATIENT TOLERATED. ALL DUE MEDS GIVEN ORDERED. NO SIGNIFICANT CHANGES IN CONDITION. ALL NURSING NEEDS MET AND RENDERED. WILL CONTINUE PLAN OF CARE. SAFETY MEASURES IN PLACE. BED IN LOW, LOCKED POSITION WITH SR UPX2. WILL ENDORSE TO DAYSHIFT FOR TIMOTEO.
--- NOTE | 2020-05-30 08:00 | NUR ---
REAL ESTATE VALUER OPENING NOTE Patient is resting in bed, A/Ox4, saturating 93% on 15.0L NRB. Patient denies any pain or discomfort at this time. IV line is clean and intact flushing well. Bed is in lowest position, side rails x2 in upright position, call light is within reach, fall safety and aspiration precautions enforced. Will continue with plan of care.
[2020-05-30 08:04] LABS: BASOPHILS % (AUTO) 0.4 % (0.0-2.0); HEMATOCRIT 46 % (39-51); HEMOGLOBIN 14.8 g/dL (13.5-17.5); LYMPHOCYTES # (AUTO) 0.3 /CMM (0.8-4.8); LYMPHOCYTES % (AUTO) 3.7 % (20.0-44.0); MEAN CORPUSCULAR HGB CONC 33 g/dl (31.0-36.0); MEAN CORPUSCULAR VOLUME 89 fL (80-96); MONOCYTES # (AUTO) 0.9 /CMM (0.1-1.30); MONOCYTES % (AUTO) 10.1 % (2.0-12.0); NEUTROPHILS # (AUTO) 7.4 /CMM (1.8-8.9); NEUTROPHILS % (AUTO) 85.8 % (43.0-81.0); PLATELET COUNT (AUTO) 302 /CMM (150-450); RED BLOOD CELL COUNT(AUTO) 5.09 MIL/uL (4.5-6.0); WHITE BLOOD COUNT (AUTO) 8.7 K/uL (4.3-11.0)
[2020-05-30 08:30] LABS: ALANINE AMINOTRANSFERASE 65 U/L (12-78); ALBUMIN 2.4 g/dL (3.4-5.0); ALKALINE PHOSPHATASE 70 U/L (46-116); ASPARTATE AMINOTRANSFERASE 48 U/L (15-37); BILIRUBIN,DIRECT 0.3 mg/dL (0.0-0.2); BILIRUBIN,TOTAL 0.6 mg/dL (0.2-1.0); CALCIUM, SERUM 8.8 mg/dL (8.5-10.1); CARBON DIOXIDE 25 mmol/L (21-32); CHLORIDE 107 mmol/L (98-107); CREATININE 1.4 mg/dL (0.6-1.3); GLUCOSE 146 mg/dL (74-106); MAGNESIUM 2.4 mg/dL (1.8-2.4); PHOSPHORUS 4.3 mg/dL (2.5-4.9); POTASSIUM 4.2 mmol/L (3.5-5.1); SODIUM SERUM 141 mmol/L (136-145); TOTAL PROTEIN, SERUM 6.6 g/dL (6.4-8.2); UREA NITROGEN, BLOOD 40 mg/dL (7-18)
[2020-05-30] MEDS: DEXAMETHASONE SOD PHOSPHATE 10 MG/ML VIAL IV SCH (08:41)
[2020-05-30] MEDS: ATORVASTATIN 10 MG TABLET PO SCH (08:41)
[2020-05-30] MEDS: ENOXAPARIN SODIUM 30 MG/0.3 ML DISP.SYRIN SQ SCH ×2 (08:42→22:04)
[2020-05-30] MEDS: LISINOPRIL (10MG) 10 MG TABLET PO SCH (08:42)
[2020-05-30] MEDS: LOSARTAN POTASSIUM 50 MG TABLET PO SCH (08:43)
[2020-05-30] MEDS: REMDESIVIR (CHARGED) 100 MG in IV NS 0.9% 100 ML IV SCH (11:21)
--- NOTE | 2020-05-30 14:17 | NUR ---
COLOR GRINDER NOTE Per Sammi BILLET SHEARER, to put patient on high flow O2. Patient placed on 60L high flow Fio2 100% saturating 95%by Wesly RT.
[2020-05-30] MEDS: CEFTRIAXONE 1 G in IV D5W 50 ML IV SCH (14:20)
--- NOTE | 2020-05-30 19:10 | NUR ---
CIVIL LAWYER OPENING NOTES RECEIVED PATIENT IN BED AWAKE ALERT AND ORIENTED X 4, ON HIGH FLOW 60L FIO2 AT 100%. TOLERATING WELL, RESPIRATIONS EVEN AND UNLABORED WITH EQUAL RISE AND FALL OF CHEST, DENIES ANY PAIN OR DISCOMFORT AT THIS TIME, ON LANDSCAPE ACCOUNT MANAGER SR 66. IV SITE TO LEFT AC #18 G INTACT AND PATENT, NO REDNESS,NO INFILTRATION PRESENT. ORIENTED TO STAFF AND CALL LIGHT AND KEPT WITHIN REACH, TOILETING NEEDS OFFERED, REMAINS COMFORTABLE WILL CONTINUE TO MONITOR.
--- NOTE | 2020-05-30 19:53 | NUR ---
SUPERVISORY EXAMINER CLOSING NOTE Patient is resting in bed, A/Ox4, saturating 95% 60.0L high flow fio2 100%. Patient denies any pain or discomfort at this time. IV line is clean and intact flushing well. All patient needs met, all due medications given, patient kept clean and dry throughout shift. Bed is in lowest position, side rails x2 in upright position, call light is within reach, fall safety and aspiration precautions enforced. Will endorse to security shift manager for TIMOTEO.
[2020-05-31] VITALS (7 sets, daily range): BP systolic 104–161; BP diastolic 73–93
[2020-05-31 07:16] LABS: BASOPHILS # (AUTO) 0.1 /CMM (0.0-0.2); BASOPHILS % (AUTO) 0.6 % (0.0-2.0); EOSINOPHILS % (AUTO) 0.1 % (0.0-6.0); HEMATOCRIT 44 % (39-51); HEMOGLOBIN 14.2 g/dL (13.5-17.5); LYMPHOCYTES # (AUTO) 0.4 /CMM (0.8-4.8); LYMPHOCYTES % (AUTO) 3.7 % (20.0-44.0); MEAN CORPUSCULAR HGB CONC 33 g/dl (31.0-36.0); MEAN CORPUSCULAR VOLUME 89 fL (80-96); MONOCYTES # (AUTO) 0.8 /CMM (0.1-1.30); MONOCYTES % (AUTO) 7.2 % (2.0-12.0); NEUTROPHILS # (AUTO) 10.1 /CMM (1.8-8.9); NEUTROPHILS % (AUTO) 88.4 % (43.0-81.0); PLATELET COUNT (AUTO) 290 /CMM (150-450); RED BLOOD CELL COUNT(AUTO) 4.91 MIL/uL (4.5-6.0); WHITE BLOOD COUNT (AUTO) 11.4 K/uL (4.3-11.0)
--- NOTE | 2020-05-31 07:35 | NUR ---
CHAIN PERSON NOTES PATIENT RECEIVED IN BED, ALERT AND ORIENTED X 4. ON HIGH FLOW NASAL CANNULA 60L, WITH NO RESPIRATORY DISTRESS AT THIS TIME. ON PAIRING MACHINE OPERATOR, SR 60. SKIN WARM AND DRY TO TOUCH, IV ACCESS INTACT AND PATENT. PATIENT DENIES ANY PAIN OR DISCOMFORT AT THIS TIME. SAFETY PRECAUTIONS IMPLEMENTED WITH BED LOCKED, BILATERAL SIDE RAILS UP, BED ALARM ON, BED IN LOWEST POSITIONS AND CALL LIGHT WITHIN EASY REACH OF PATIENT. WILL CONTINUE TO MONITOR.
--- NOTE | 2020-05-31 07:40 | NUR ---
DATA CONVERSION DEVELOPER CLOSING NOTES PATIENT IN BED AWAKE ALERT AND ORIENTED X 4, ON HIGH FLOW 60L FIO2 AT 100%. TOLERATING WELL, RESPIRATIONS EVEN AND UNLABORED WITH EQUAL RISE AND FALL OF CHEST, DENIES ANY PAIN OR DISCOMFORT AT THIS TIME, ON BONDING AND COMPOSITE FABRICATOR SR 68. IV SITE TO LEFT AC #18 G INTACT AND PATENT, NO REDNESS,NO INFILTRATION PRESENT. ORIENTED TO STAFF AND CALL LIGHT AND KEPT WITHIN REACH, TOILETING NEEDS OFFERED, REMAINS COMFORTABLE WILL CONTINUE TO MONITOR AND ENDORSE TO NEXT SHIFT.
[2020-05-31 07:59] LABS: ALANINE AMINOTRANSFERASE 83 U/L (12-78); ALBUMIN 2.6 g/dL (3.4-5.0); ALKALINE PHOSPHATASE 71 U/L (46-116); ASPARTATE AMINOTRANSFERASE 62 U/L (15-37); BILIRUBIN,DIRECT 0.3 mg/dL (0.0-0.2); BILIRUBIN,TOTAL 0.6 mg/dL (0.2-1.0); CALCIUM, SERUM 8.7 mg/dL (8.5-10.1); CARBON DIOXIDE 25 mmol/L (21-32); CHLORIDE 107 mmol/L (98-107); CREATININE 1.4 mg/dL (0.6-1.3); GLUCOSE 130 mg/dL (74-106); MAGNESIUM 2.3 mg/dL (1.8-2.4); PHOSPHORUS 3.6 mg/dL (2.5-4.9); POTASSIUM 4.3 mmol/L (3.5-5.1); SODIUM SERUM 143 mmol/L (136-145); TOTAL PROTEIN, SERUM 6.7 g/dL (6.4-8.2); UREA NITROGEN, BLOOD 43 mg/dL (7-18)
[2020-05-31] MEDS: ATORVASTATIN 10 MG TABLET PO SCH (08:42)
[2020-05-31] MEDS: DEXAMETHASONE SOD PHOSPHATE 10 MG/ML VIAL IV SCH (08:42)
[2020-05-31] MEDS: ENOXAPARIN SODIUM 30 MG/0.3 ML DISP.SYRIN SQ SCH ×2 (08:43→20:44)
[2020-05-31] MEDS: AMLODIPINE BESYLATE 5 MG TABLET PO SCH (08:45)
[2020-05-31] MEDS: LOSARTAN POTASSIUM 50 MG TABLET PO SCH (08:45)
[2020-05-31 09:51] LABS: BAND % (MANUAL) 1 % (0.0-5.0); LYMPHOCYTES % (MANUAL) 1 % (16-48); MONOCYTES % (MANUAL) 12 % (0-11.0); NEUTROPHILS % (MANUAL) 86 (42-76)
[2020-05-31] MEDS: CEFTRIAXONE 1 G in IV D5W 50 ML IV SCH (13:08)
--- NOTE | 2020-05-31 19:16 | NUR ---
BLOWING ENGINEER NOTES PATIENT IN BED, ALERT AND ORIENTED X 4. ON HIGH FLOW NASAL CANNULA 60LPM, WITH NO RESPIRATORY DISTRESS AT THIS TIME. ON SALON ASSISTANT. PATIENT SKIN KEPT CLEAN, WARM AND DRY TO TOUCH, IV ACCESS INTACT AND PATENT. PATIENT DENIES ANY PAIN OR DISCOMFORT AT THIS TIME. SAFETY PRECAUTIONS IMPLEMENTED WITH BED LOCKED, BILATERAL SIDE RAILS UP, BED ALARM ON, BED IN LOWEST POSITIONS AND CALL LIGHT WITHIN EASY REACH OF PATIENT. WILL ENDORSE PLAN OF CARE TO UPCOMING RN.
[2020-06-01] VITALS: BP 146/82
[2020-06-01 04:00] VITALS: BP 151/72
--- NOTE | 2020-06-01 07:37 | NUR ---
FARM GENERAL MANAGER NOTES PATIENT RECEIVED IN BED, ALERT AND ORIENTED X 4. ON HIGH FLOW NASAL CANNULA 60L,PM WITH NO RESPIRATORY DISTRESS AT THIS TIME. ON CLINICAL PHARMACOLOGIST, SR 70. SKIN WARM AND DRY TO TOUCH, IV ACCESS INTACT AND PATENT. PATIENT DENIES ANY PAIN OR DISCOMFORT AT THIS TIME. SAFETY PRECAUTIONS IMPLEMENTED WITH BED LOCKED, BILATERAL SIDE RAILS UP, BED ALARM ON, BED IN LOWEST POSITIONS AND CALL LIGHT WITHIN EASY REACH OF PATIENT. WILL CONTINUE TO MONITOR.
[2020-06-01 08:00] VITALS: BP 137/71
[2020-06-01] MEDS: ATORVASTATIN 10 MG TABLET PO SCH (08:37)
[2020-06-01] MEDS: AMLODIPINE BESYLATE 5 MG TABLET PO SCH (08:38)
[2020-06-01] MEDS: LOSARTAN POTASSIUM 50 MG TABLET PO SCH (08:38)
[2020-06-01] MEDS: DEXAMETHASONE SOD PHOSPHATE 10 MG/ML VIAL IV SCH (08:39)
[2020-06-01] MEDS: ENOXAPARIN SODIUM 30 MG/0.3 ML DISP.SYRIN SQ SCH ×2 (08:40→21:25)
[2020-06-01] MEDS: ACETAMINOPHEN 325 MG TABLET PO PRN (13:28)
[2020-06-01 16:00] VITALS: BP 139/71
--- NOTE | 2020-06-01 19:10 | NUR ---
AIR BAG BUFFER NOTES PATIENT IN BED, ALERT AND ORIENTED X 4. ON HIGH FLOW NASAL CANNULA 60LPM, WITH NO RESPIRATORY DISTRESS AT THIS TIME. ON GIRLS TENNIS COACH. PATIENT SKIN KEPT CLEAN, WARM AND DRY TO TOUCH, IV ACCESS INTACT AND PATENT. PATIENT DENIES ANY PAIN OR DISCOMFORT AT THIS TIME. SAFETY PRECAUTIONS IMPLEMENTED WITH BED LOCKED, BILATERAL SIDE RAILS UP, BED ALARM ON, BED IN LOWEST POSITIONS AND CALL LIGHT WITHIN EASY REACH OF PATIENT. WILL ENDORSE PLAN OF CARE TO UPCOMING RN
[2020-06-01 20:00] VITALS: BP 138/80
[2020-06-02] VITALS: BP 137/76
[2020-06-02 04:00] VITALS: BP 146/76
[2020-06-02 08:00] VITALS: BP 163/86
--- NOTE | 2020-06-02 08:11 | NUR ---
VIDEOTAPE RECORDING ENGINEER OPENING NOTE PATIENT IS IN BED RESTING. PATIENT IS IN NO ACUTE DISTRESS. NO SOB NOTED. PATIENT IS ON HIGH FLOW 60L. PATIENT IS ON EXECUTIVE DIRECTOR OF MARKETING READING SR 68 WITH BBB. SAFETY PRECAUTIONS ARE IN PLACE. BED IS LOCKED AND IN THE LOWEST POSITION. SIDE RAILS ARE UP CALL LIGHT WITHIN REACH. WILL CONTINUE TO MONITOR CLOSELY THROUGH OUT THE SHIFT.
--- NOTE | 2020-06-02 09:30 | NUR ---
PAYER SPECIALIST NOTE PER DR. LIGHT PATIENT DOES NOT NEED SECOND UNIT OF CONVALESCENT PLASMA.
[2020-06-02] MEDS: ATORVASTATIN 10 MG TABLET PO SCH (09:55)
[2020-06-02] MEDS: LOSARTAN POTASSIUM 50 MG TABLET PO SCH (09:55)
[2020-06-02] MEDS: DEXAMETHASONE SOD PHOSPHATE 10 MG/ML VIAL IV SCH (09:55)
[2020-06-02] MEDS: ACETAMINOPHEN 325 MG TABLET PO PRN (09:56)
[2020-06-02] MEDS: AMLODIPINE BESYLATE 5 MG TABLET PO SCH (09:56)
[2020-06-02] MEDS: ENOXAPARIN SODIUM 30 MG/0.3 ML DISP.SYRIN SQ SCH ×2 (09:57→21:57)
[2020-06-02] MEDS ORDERED: CLONIDINE HCL 0.1 MG TABLET PO PRN (10:30)
[2020-06-02 12:00] VITALS: BP 150/80
[2020-06-02 16:00] VITALS: BP 118/69
--- NOTE | 2020-06-02 19:52 | NUR ---
ELEVATOR PILOT CLOSING NOTE PATIENT IS IN BED RESTING. PATIENT IS ON HIGH FLOW ON 60L. TOLERATING WELL. NO SOB NOTED. PATIENT KEPT CLEAN DRY AND COMFORTABLE THROUGH OUT THE SHIFT. NO SIGNS ON DISTRESS NOTED. SAFETY PRECAUTIONS ARE IN PLACE. BED IN THE LOWEST POSITION, WITH BREAK ON. SIDE RAILS ARE UP, CALL LIGHT WITHIN REACH. ENDORSE PATIENT TO THE EVENTS ADMINISTRATIVE ASSISTANT NURSE FOR TIMOTEO.
[2020-06-02 20:00] VITALS: BP 119/69
--- NOTE | 2020-06-02 20:00 | NUR ---
TELE/RN OPENING NOTES: RECEIVED PATIENT IN BED RESTING AND WATCHING TV, A/OX4. VERBALLY RESPONSIVE AND ABLE TO MAKE NEEDS KNOWN. PATIENT IS IN NO ACUTE DISTRESS. NO SOB NOTED. NO C/O PAIN AT THIS TIME. PATIENT IS ON HIGH FLOW 60 NC. PATIENT IS ON CRYPTOGRAPHIC CENTER SPECIALIST READING SR WITH BBB. SAFETY PRECAUTIONS ARE IN PLACE. BED IS LOCKED AND IN THE LOWEST POSITION. SIDE RAILS X2 UP, CALL LIGHT WITHIN REACH. WILL CONTINUE TO MONITOR CLOSELY THROUGH OUT THE SHIFT.
[2020-06-03] VITALS (7 sets, daily range): BP systolic 121–139; BP diastolic 69–80
--- NOTE | 2020-06-03 07:45 | NUR ---
TELE/RN OPENING NOTE RECEIVED THE PATIENT ALERT AND ORIENTED X2, ON HIGH FLOW AT 60 LFIO2 100%. DENIES SOB. RESPIRATION REGULAR AND UNLABORED. DENIES PAIN. TELE BOX READING IS SR WITH BBB. WILL CONTINUE TO MONITOR.
--- NOTE | 2020-06-03 08:02 | NUR ---
TELE/RN CLOSING NOTES: PATIENT REMAINS IN BED RESTING AND A/OX4.EATING BREAKFAST. NO SIGNIFICANT CHANGES IN CONDITION. IN NO ACUTE DISTRESS. NO SOB NOTED. NO C/O PAIN AT THIS TIME. PATIENT IS ON HIGH FLOW 60L NC. PATIENT IS ON PHP CONSULTANT READING SR WITH BBB. SAFETY PRECAUTIONS ARE IN PLACE. BED IS LOCKED AND IN THE LOWEST POSITION. SIDE RAILS X2 UP, CALL LIGHT WITHIN REACH. ALL DUE MEDS GIVEN ORDERED. ALL NURSING NEEDS MET. PT USES URINAL, AND SPIROMETER AT BEDSIDE. WILL CONTINUE PLAN OF CARE AND ENDORSED TO DAY SHIFT RN FOR TIMOTEO.
[2020-06-03] MEDS: ATORVASTATIN 10 MG TABLET PO SCH (09:48)
[2020-06-03] MEDS: DEXAMETHASONE SOD PHOSPHATE 10 MG/ML VIAL IV SCH (09:48)
[2020-06-03] MEDS: ENOXAPARIN SODIUM 30 MG/0.3 ML DISP.SYRIN SQ SCH ×2 (09:50→21:43)
[2020-06-03] MEDS: AMLODIPINE BESYLATE 5 MG TABLET PO SCH (09:52)
[2020-06-03] MEDS: LOSARTAN POTASSIUM 50 MG TABLET PO SCH (09:52)
[2020-06-03 10:31] LABS: EOSINOPHILS % (AUTO) 0.1 % (0.0-6.0); HEMATOCRIT 47 % (39-51); HEMOGLOBIN 15.3 g/dL (13.5-17.5); LYMPHOCYTES # (AUTO) 0.7 /CMM (0.8-4.8); LYMPHOCYTES % (AUTO) 7.3 % (20.0-44.0); MEAN CORPUSCULAR HGB CONC 33 g/dl (31.0-36.0); MEAN CORPUSCULAR VOLUME 89 fL (80-96); MONOCYTES # (AUTO) 0.5 /CMM (0.1-1.30); MONOCYTES % (AUTO) 5.3 % (2.0-12.0); NEUTROPHILS # (AUTO) 8.1 /CMM (1.8-8.9); NEUTROPHILS % (AUTO) 87.3 % (43.0-81.0); PLATELET COUNT (AUTO) 210 /CMM (150-450); RED BLOOD CELL COUNT(AUTO) 5.24 MIL/uL (4.5-6.0); WHITE BLOOD COUNT (AUTO) 9.3 K/uL (4.3-11.0)
[2020-06-03 10:38] LABS: CALCIUM, SERUM 8.6 mg/dL (8.5-10.1); CREATININE 1.1 mg/dL (0.6-1.3); POTASSIUM 4.4 mmol/L (3.5-5.1)
--- NOTE | 2020-06-03 11:48 | NUR ---
STEPHEN/REILLY OXYGEN SATURATION IN ROOM AIR IS AT 82%. PATIENT IS KEPT ON OXYGEN AT 2L/MIN AND SATURATION MAINTAINS AT 93%. WILL CONTINUE TO MONITOR. Addendum: 06/03/20 at 1149 by TEX FLANAGAN RN WRONG PATIENT ENTRY
--- NOTE | 2020-06-03 18:02 | NUR ---
TELE/RN CLOSING NOTE THE PATIENT ALERT AND ORIENTED X4. DENIES PAIN. PATIENT IS ON HIGH FLOW 60L, FIO2 100%. DENIES SOB. RESPIRATION REGULAR AND UNLABORED. DENIES PAIN. BED LOW AND LOCKED. SIDE RAILS UP X3. CALL LIGHT WITHIN REACH. WILL ENDORSE TO REIMBURSEMENT LIAISON.
--- NOTE | 2020-06-03 20:32 | NUR ---
VISCOSE CELLAR CHARGE HAND OPENING NOTES PT RECEIVED BY BEDSIDE. PT CALM, COOPERATIVE. ALERT AND ORIENTED X4. PRIMARY LANGUAGE DJIBOUTIAN. NO COMPLAINTS OF DISCOMFORT OR DISTRESS. PT ON HIGH FLOW 60L. TOLERATING WELL. O2 SATURATION AT 95%. LAC #18. FLUSHING WELL, PATENT. NO OCCLUSIONS, NO INFILTRATION. CALL LIGHT WITHIN REACH. WILL CONTINUE TO MONITOR. WILL CONTINUE PLAN OF CARE.
[2020-06-04] VITALS (9 sets, daily range): BP systolic 99–144; BP diastolic 60–77
--- NOTE | 2020-06-04 07:36 | NUR ---
PAVING FOREMAN CLOSING NOTES PT LAYING IN BED. CALM, COOPERATIVE. ALERT AND ORIENTED X4. NO COMPLAINTS OF DISTRESS/ DISCOMFORT. VITAL SIGNS: 144/72, PLSE 55, RESP 22, TEMP 97.3, O2 SAT.96%. LAC #18, PATENT AND FLUSHING WELL. NO OCCLUSIONS, NO INFILTRATION. PT ON HIGH FLOW 60L. TOLERATING WELL. WILL ENDORSE TO UPCOMING SHIFT. WILL CONTINUE TO MONITOR. WILL CONTINUE PLAN OF CARE.
[2020-06-04] MEDS: AMLODIPINE BESYLATE 5 MG TABLET PO SCH (09:58)
[2020-06-04] MEDS: ATORVASTATIN 10 MG TABLET PO SCH (09:58)
[2020-06-04] MEDS: ENOXAPARIN SODIUM 30 MG/0.3 ML DISP.SYRIN SQ SCH ×2 (09:59→20:43)
[2020-06-04] MEDS: LOSARTAN POTASSIUM 50 MG TABLET PO SCH (09:59)
[2020-06-04] MEDS: ACETAMINOPHEN 325 MG TABLET PO PRN (14:42)
--- NOTE | 2020-06-04 19:15 | NUR ---
COLOR STRIPPER NOTES PATIENT IN BED RESTING NO SOB OR ACUTE DISTRESS NOTED. PATIENT ON HIGH FLOW OXYGEN. ALL DUE MEDICATIONS ADMINISTERED. ALL NEEDS MET. ENDORSED CARE TO PM SHIFT. NO ACUTE CHANGES NOTED DURING AM SHIFT.
--- NOTE | 2020-06-04 20:01 | NUR ---
HEALTH SANITARIAN OPENING NOTES PT RECEIVED BEDSIDE. CALM, COOPERATIVE. ALERT AND ORIENTED X4. PT ON 60L HIGH FLOW. TOLERATING WELL. LAC #18 INTACT, PATENT, FLUSHING WELL. NO OCCLUSIONS, NO INFILTRATION. BED LOCKED, BED ALARM CHECKED. PT ON SEMI FOWLERS POSITION. WILL CONTINUE TO MONITOR. WILL CONTINUE PLAN OF CARE.
[2020-06-05] VITALS: BP 113/63
[2020-06-05 04:00] VITALS: BP 114/74
[2020-06-05] MEDS: GUAIFENESIN/CODEINE 10 ML UDC PO PRN (04:12)
[2020-06-05] MEDS ORDERED: MENTHOL/CETYLPYRD (CEPACOL) 1 LOZ LOZENGE PO PRN (07:00)
--- NOTE | 2020-06-05 07:07 | NUR ---
[employer] SALES REPRESENTATIVE OPENING NOTE RECEIVED PT IN BED AWAKE AT THIS TIME. AOX4. NO SOB NOTED, NO S/S OF ANY ACUTE DISTRESS NOTED, NO C/O PAIN AT THIS TIME. PT NOTED ON HF OXYGEN @ 60LPM.IC ACCESS NOTED IN LAC, INTACT, PATENT AND FLUSHING WELL. ASPIRATIONS AND SAFETY PRECAUTIONS IN PLACE AND MAINTAINED AT ALL TIMES. BED IN LOWEST LOCKED POSITION, SIDE RAILS UP, HOB ELEVATED, TABLE AND CALL LIGHT WITHIN REACH. WILL CONTINUE TO MONITOR.
--- NOTE | 2020-06-05 07:36 | NUR ---
INSPECTOR OUTSIDE PRODUCTION CLOSING NOTES PT LAYING IN BED. AWAKE. CALM AND COOPERATIVE. ALERT AND ORIENTED X4. PT ON HIGH FLOW 60lL. FIO2 88%. TOLERATING WELL. NO SOB. EVEN ADN UNLABORED BREATHING NOTED. NO COMPLAINTS. NO SIGNIFICANT CHANGES. WILL ENDORSE TO NEXT SHIFT. BED LOCKED. BED ALARM ON. CALL LIGHT WITHIN REACH. WILL CONTINUE PLAN OF CARE.
[2020-06-05] MEDS: LOSARTAN POTASSIUM 50 MG TABLET PO SCH (09:00)
[2020-06-05] MEDS: AMLODIPINE BESYLATE 5 MG TABLET PO SCH (09:00)
[2020-06-05] MEDS: ENOXAPARIN SODIUM 30 MG/0.3 ML DISP.SYRIN SQ SCH ×2 (09:39→21:50)
[2020-06-05] MEDS: ATORVASTATIN 10 MG TABLET PO SCH (09:40)
--- NOTE | 2020-06-05 11:43 | NUR ---
LAB REQUESTED NURSE TO REORDER TYPE AND SCREEN AND CONVALESCENT PLASMA, DUE TO CONVALESCENT PLASMA ORDER . ORDERS ENTERED. WILL CONTINUE WITH PLAN OF CARE
--- NOTE | 2020-06-05 19:08 | NUR ---
RN CLOSING NOTES PT AWAKE IN BED AT THIS TIME. PT REMAINED STABLE THROUGHOUT SHIFT. ALL CARE, NEED, MEDICATIONS AND TREATMENT ADMINISTERED ANTICIPATED PER ORDER. PT KEPT CLEAN AND DRY. SAFETY PRECAUTION IN PLACE AND MAINTAINED AT ALL TIMES. BED IN LOWEST LOCKED POSITION, HOB ELEVATED, SIDE RAILS UP X 2, CALL LIGHT AND TABLE WITHIN REACH. ENDORSED TO RIDING DOUBLE NURSE FOR TIMOTEO
--- NOTE | 2020-06-05 19:15 | NUR ---
RN NOTES: -UPON ENDORSEMENT RN OUTGOING RECEIVED A CALL FROM LAB THAT PATIENT CONVALESCENT PLASMA IS READY FOR P/U. -PATIENT WAS A/O 3-4, ORIENTED TO UNIT AND STAFF, FALL,SAFETY AND ASPIRATION PRECAUTION OBSERVED, ON TELE-MONITOR, PATIENT HAS PLEASANT MOOD, NON LABORED BREATHING, NO WHEEZING OR SOB, ON HIGH FLOW O2 AT 6OL 75%, SPO2-91%, HIS SATURATION GO DOWN WHEN HE EXERT A LOT OF EFFORT AND DURING CHANGE OF POSITION.HE WAS ASSITED TO USE THE URINAL, AFTER HE PEE, HIS SATURATION GO DOWN TO 88%, ENCOURAGE TO DEEP BREATH AND RELAX, AFTER HE RESTED IT GOES UP TO 90%, KEPT ON CLOSE WATCH. -SATURATION GO HIGHER UP TO 93%.
--- NOTE | 2020-06-05 19:25 | NUR ---
RN NOTES: -CONVALESCENT PLASMA 2ND UNITS P/U FROM THE LAB, CHECK WITH LAB GIULIA-NICOLE MR# [id number],TYPE A POSITIVE, WB# [id number], 06/10/20 VOLUME:200ML. - BASELINE V/S BP-143/69 NC-70 T-98.4 RR-18 02 SAT-94% PAIN-O. -IV TUBING PRIMED, AT INFUSION STARTED AT 1934, V/S MONITORED, PATIENT MONITORED CLOSELY ON THE FIRST 15 MIN. OF TRANSFUSION, NO REACTION NOTED.V/S MONITORED. -COMPLETED AT 2004 V/S 1999 BP-120-69 NC-66 T-98.2 RR-18 SPO2-95% NO PAIN, NO REDNESS, NO TRANSFUSION REACTION.
[2020-06-05 19:33] VITALS: BP 143/69
[2020-06-05 19:45] VITALS: BP 116/57
[2020-06-05 20:00] VITALS: BP_SYST 120; BP_SYST 121; BP_DIAS 66; BP_DIAS 69
[2020-06-05 20:07] VITALS: BP 121/66
[2020-06-06] VITALS: BP 136/74
--- NOTE | 2020-06-06 00:38 | NUR ---
RN NOTES: ASSISTED TO USE URINAL, ACTIVITY TOLERATED, ON CLOSE WATCH, ASSISTED BACK TO BED SPO2-90%. KEPT CALL LIGHT WITHIN EASY REACH.
--- NOTE | 2020-06-06 02:50 | NUR ---
RN NOTES: AROUND 0200 AWAKE, ASSISTED TO USE URINAL HE SAID HE FELT THE AIR FROM THE HIGH FLOW IS WARM, RT NOTIFIED, CHECKED BY RT,FIXED; NOW HE IS BACK TO SLEEP SPO2-93%.
[2020-06-06 04:00] VITALS: BP 147/77
--- NOTE | 2020-06-06 07:50 | NUR ---
TELE/RN OPENING NOTES RECEIVED PATIENT ON BED. PATIENT IS ON HIGH FLOW 60L FIO2 75%. PATIENT IN NO APPARENT RESPIRATORY DISTRESS NOTED. NO COMPLAINED OF PAIN NOTED AT THIS TIME. TELE MONITOR READING SINUS RHYTHM 72 BPM. WILL CONTINUE TO MONITOR.
--- NOTE | 2020-06-06 07:51 | NUR ---
RN NOTES: PATIENT STILL ASLEEP, CALLS AND NEEDS ATTENDED, ON TELE MONITOR SR WITH PVC RATE=65, NON LABORED BREATHING, MARITA -[phone], KEPT CALL LIGHT WITHIN EASY REACH. BED LOW AND LOCKED. ENDORSED FOR CONTINUITY OF CARE.
[2020-06-06] MEDS: ATORVASTATIN 10 MG TABLET PO SCH (08:58)
[2020-06-06] MEDS: AMLODIPINE BESYLATE 5 MG TABLET PO SCH (08:59)
[2020-06-06] MEDS: LOSARTAN POTASSIUM 50 MG TABLET PO SCH (08:59)
[2020-06-06] MEDS: ENOXAPARIN SODIUM 30 MG/0.3 ML DISP.SYRIN SQ SCH ×2 (09:01→21:41)
--- NOTE | 2020-06-06 10:15 | NUR ---
TELE/RN NOTES PLACE PATIENT ON 10L OXYGEN VIA FACE MASK SATURATION 94% TOLERATING WELL. NO SHORTNESS OF BREATH NOTED. WILL CONTINUE TO MONITOR. Addendum: 06/06/20 at 1313 by MARKIE ZARATE RN ERROR
[2020-06-06 18:00] VITALS: BP 122/71
--- NOTE | 2020-06-06 19:30 | NUR ---
TELE/RN OPENING NOTES RECEIVED PATIENT IN BED RESTING. PATIENT IS ALERT AND ORIENTED X 4. PATIENT BREATHING IS EVEN AND UNLABORED. NO SIGNS OF RESPIRATORY DISTRESS NOTED. PATIENT IN NO SIGNS OF DISTRESS. PATIENT HAS IV ACCESS ON LEFT AC #18G SL. SAFETY MEASURES ARE IN PLACED, BED IS LOCKED AND PLACED IN THE LOWEST POSITION, SIDE RAILS UP X 2, CALL LIGHT WITHIN REACH. WILL CONTINUE TO MONITOR THROUGH OUT SHIFT.
--- NOTE | 2020-06-06 19:30 | NUR ---
TELE/RN CLOSING NOTES PATIENT IS ON BED. ALERT AND ORIENTED X4. PATIENT IS ON HIGH FLOW 60L OXYGEN FIO2 75% SATURATION 90%. PATIENT IN NO APPARENT RESPIRATORY DISTRESS. NO COMPLAINED OF PAIN NOTED AT THIS TIME. TELE MONITOR READING SINUS RHYTHM 72BPM. SEEN AND EXAMINED BY MD WITH ORDERS MADE AND CARRIED OUT. ALL DUE MEDICATIONS WAS GIVE. SAFETY PRECAUTIONS WAS IN PLACED. BED IN LOWEST POSITION AND LOCKED. SIDE RAILS UP X2. CALL LIGHT WITHIN REACH. WILL ENDORSED TO ARMATURE WINDER REPAIRER FOR TIMOTEO.
[2020-06-06 20:00] VITALS: BP 141/76
[2020-06-07] VITALS: BP 123/65
[2020-06-07 04:00] VITALS: BP 132/73
--- NOTE | 2020-06-07 06:30 | NUR ---
TELE/RN OPENING NOTES PATIENT IN BED SLEEPING EASY TO AROUSE. PATIENT IS ALERT AND ORIENTED X 4. PATIENT BREATHING IS EVEN AND UNLABORED. NO SIGNS OF RESPIRATORY DISTRESS NOTED. PATIENT IN NO SIGNS OF DISTRESS. TELE READING SR 61. PATIENT HAS IV ACCESS ON LEFT AC #18G SL. ALL NEEDS HAVE BEEN MET DURING SHIFT. SAFETY MEASURES ARE IN PLACE, BED IS LOCKED AND PLACED IN THE LOWEST POSITION, SIDE RAILS UP X 2, CALL LIGHT WITHIN REACH. WILL ENDORSE CARE TO DAY SHIFT NURSE.
[2020-06-07 06:49] LABS: BASOPHILS % (AUTO) 0.5 % (0.0-2.0); EOSINOPHILS % (AUTO) 1.2 % (0.0-6.0); HEMATOCRIT 38 % (39-51); HEMOGLOBIN 12.7 g/dL (13.5-17.5); LYMPHOCYTES # (AUTO) 0.5 /CMM (0.8-4.8); LYMPHOCYTES % (AUTO) 6.8 % (20.0-44.0); MEAN CORPUSCULAR HGB CONC 33 g/dl (31.0-36.0); MEAN CORPUSCULAR VOLUME 87 fL (80-96); MONOCYTES # (AUTO) 0.8 /CMM (0.1-1.30); MONOCYTES % (AUTO) 10.8 % (2.0-12.0); NEUTROPHILS # (AUTO) 5.6 /CMM (1.8-8.9); NEUTROPHILS % (AUTO) 80.7 % (43.0-81.0); PLATELET COUNT (AUTO) 132 /CMM (150-450); RED BLOOD CELL COUNT(AUTO) 4.39 MIL/uL (4.5-6.0)
[2020-06-07 07:02] LABS: CALCIUM, SERUM 8.3 mg/dL (8.5-10.1); CREATININE 0.9 mg/dL (0.6-1.3); POTASSIUM 4.1 mmol/L (3.5-5.1)
--- NOTE | 2020-06-07 07:30 | NUR ---
TELE/RN OPENING NOTE Patient is resting in bed, A&O x 4, easily arousable upon tactile and verbal stimulation. Breathing even and non-labored on high flow oxygen 60 L FiO2 100%, no SOB noted. No respiratory or cardiac distress noted. On tele monitor, reading SB with BBB 59. IV access noted on LAC #18g, patent and intact, and flushing well. Bed locked to its lowest position, side rails x 2 up, call light in hand. Will continue with current medical management.
[2020-06-07 08:00] VITALS: BP 128/76
--- NOTE | 2020-06-07 08:00 | NUR ---
TELE/RN NOTE Dr. Redman at bedside, lowered patient's FiO2 from 100% to 65% on high flow 60 L. Patient appears well and comfortable, saturating at 91%, no respiratory distress noted.
[2020-06-07] MEDS: AMLODIPINE BESYLATE 5 MG TABLET PO SCH (08:43)
[2020-06-07] MEDS: ATORVASTATIN 10 MG TABLET PO SCH (08:43)
[2020-06-07] MEDS: ENOXAPARIN SODIUM 30 MG/0.3 ML DISP.SYRIN SQ SCH ×2 (08:44→21:21)
[2020-06-07] MEDS: LOSARTAN POTASSIUM 50 MG TABLET PO SCH (08:44)
[2020-06-07 10:34] LABS: ABG OXYGEN SATURATION 91.1 % (92.0-98.5); ABG PCO2 35.9 mmHg (35.0-45.0); ABG PH 7.468 (7.350-7.450); ABG PO2 56.2 mmHg (75.0-100.0); COHb 0.3 % (0.5-1.5); MetHb 0.2 % (0.0-1.5); O2Hb 90.6 % (94.0-97.0); SITE, ABG Right Radial; VENT MODE, BG Hi Flow Nasal Cannula 55%
[2020-06-07 12:00] VITALS: BP 110/61
[2020-06-07 16:00] VITALS: BP 131/72
--- NOTE | 2020-06-07 19:00 | NUR ---
TELE/RN CLOSING NOTE Patient is awake in bed, watching TV, A&O x 4. All needs met and attended to. Breathing even and non-labored on high flow oxygen 60 L FiO2 65%, no SOB noted. No respiratory or cardiac distress noted. On tele monitor, reading SR with BBB 65. IV access noted on LAC #18g, patent and intact, and flushing well. Fall precautions maintained. Will endorse to fast food shift lead nurse.
--- NOTE | 2020-06-07 19:35 | NUR ---
TELE/RN OPENING NOTES: RECEIVED PATIENT IN BED RESTING AND WATCHING TV, A/OX4. VERBALLY RESPONSIVE AND ABLE TO MAKE NEEDS KNOWN. PATIENT IS IN NO ACUTE DISTRESS. NO SOB NOTED. NO C/O PAIN AT THIS TIME. PATIENT IS ON NUT DEHYDRATOR OPERATOR READING SR WITH BBB 64. BREATHING EVEN AND NON-LABORED ON HIGH FLOW OXYGEN 60 L FIO2 65%, NO SOB NOTED. NO RESPIRATORY OR CARDIAC DISTRESS NOTED. SAFETY PRECAUTIONS ARE IN PLACE. BED IS LOCKED AND IN THE LOWEST POSITION. SIDE RAILS X2 UP, CALL LIGHT WITHIN REACH. WILL CONTINUE TO MONITOR CLOSELY THROUGH OUT THE SHIFT.
[2020-06-07 20:00] VITALS: BP 120/70
[2020-06-08] VITALS: BP 113/70
[2020-06-08 04:00] VITALS: BP 122/74
--- NOTE | 2020-06-08 06:28 | NUR ---
TELE/RN CLOSING NOTES: PT. REMAINS STABLE ALL NIGHT. NO SIGNIFICANT CHANGES IN CONDITION. A/OX4. NO SOB NOTED. ON HIGH FLOW 60L, FIO2 65%. SAFETY MEASURES IN PLACE. BED IN LOW, LOCKED POSITION WITH SR UPX2. KEPT CLEAN AND DRY, WARM AND COMFORTABLE ALL SHIFT. ALL NURSING NEEDS MET AND RENDERED, ALL DUE MEDS GIVEN ORDERED. WILL ENDORSED TO DAY SHIFT FOR [facility].
--- NOTE | 2020-06-08 07:20 | NUR ---
SUPERVISOR PAINT OPENING NOTES: PATIENT IS IN BED RESTING, AWAKE AND VERBALLY RESPONSIVE. A/O X4, ABLE TO MAKE NEEDS KNOWN. BREATHING EVEN AND UNLABORED, ON HIGH FLOW OXYGEN AT 60L, FIO2 65%, NO SOB. ON TELEMETRY MONITORING, READING OF SR WITH BBB, HR IN THE 60'S. ABLE TO USE URINAL AT BEDSIDE. SAFETY PRECAUTIONS ARE IN PLACE: BED IS LOCKED AND IN THE LOWEST POSITION. SIDE RAILS X2 UP, CALL LIGHT WITHIN REACH. WILL CONTINUE TO MONITOR.
[2020-06-08 08:00] VITALS: BP 136/72
[2020-06-08] MEDS: LOSARTAN POTASSIUM 50 MG TABLET PO SCH (09:39)
[2020-06-08] MEDS: AMLODIPINE BESYLATE 5 MG TABLET PO SCH (09:39)
[2020-06-08] MEDS: ATORVASTATIN 10 MG TABLET PO SCH (09:39)
[2020-06-08] MEDS: ENOXAPARIN SODIUM 30 MG/0.3 ML DISP.SYRIN SQ SCH ×2 (09:40→21:12)
--- NOTE | 2020-06-08 10:14 | NUR ---
RN NOTES SEEN BY RT TODAY; FI02 SETTING CHANGED TO 55%. DR. LIGHT AWARE. SPO2 CURRENTLY AT 93-94%. WILL CONTINUE TO MONITOR.
[2020-06-08 12:00] VITALS: BP 131/74
[2020-06-08 16:00] VITALS: BP 113/73
--- NOTE | 2020-06-08 19:15 | NUR ---
DIRECTOR OF COLLECTIONS CLOSING NOTES: PATIENT IS IN BED RESTING, AWAKE AND VERBALLY RESPONSIVE. A/O X4, ABLE TO MAKE NEEDS KNOWN. BREATHING EVEN AND UNLABORED, CONTINUES ON HIGH FLOW OXYGEN AT 60L, FIO2 55%, SEEN BY RT TODAY, NO SOB. ON TELEMETRY MONITORING, READING OF SR WITH BBB, HR IN THE LOW 60'S. DUE MEDS GIVEN TODAY. SAFETY PRECAUTIONS MAINTAINED: BED IS LOCKED AND IN THE LOWEST POSITION. SIDE RAILS X2 UP, CALL LIGHT WITHIN REACH. ENDORSED TO MASTER POLICE DETECTIVE RN FOR [facility].
--- NOTE | 2020-06-08 19:50 | NUR ---
BLOOD DONOR RECRUITER NOTES PATIENT IN BED, AWAKE, ALERT AND ORIENTED X 4. BREATHING EVEN AND UNLABORED ON HIGH FLOW 60LPM. SHOWS NO SIGNS OF ACUTE RESPIRATORY DISTRESS. NO ACUTE PAIN. TELE MONITOR SR WITH BBB. IV ON LAC 18G ITS CLEAN DRY AND INTACT. SHOWS NO SIGNS OF INFILTRATION, NO REDNESS. SAFETY PRECAUTIONS IN PLACE. BED IN LOWEST POSITION, LOCKED, AND CALL LIGHT KEPT WITHIN REACH. WILL CONTINUE TO MONITOR
[2020-06-08 20:00] VITALS: BP 110/66
[2020-06-09] VITALS: BP 100/63
[2020-06-09 04:00] VITALS: BP 110/69
--- NOTE | 2020-06-09 06:45 | NUR ---
BUREAU CHIEF NOTES PATIENT IN BED, AWAKE, ALERT AND ORIENTED X 4. BREATHING EVEN AND UNLABORED ON HIGH FLOW 60LPM. SHOWS NO SIGNS OF ACUTE RESPIRATORY DISTRESS. NO ACUTE PAIN. TELE MONITOR SR WITH BBB. IV ON LAC 18G ITS CLEAN DRY AND INTACT. SHOWS NO SIGNS OF INFILTRATION, NO REDNESS. ALL DUE MEDICATIONS. ALL NEEDS ATTENDED TO. SAFETY PRECAUTIONS IN PLACE. BED IN LOWEST POSITION, LOCKED, AND CALL LIGHT KEPT WITHIN REACH. WILL ENDORSE TO ONCOMING NURSE.
--- NOTE | 2020-06-09 07:30 | NUR ---
PT RECEIVED RESTING COMFORTABLY IN BED. NO S/S OR C/O PAIN OR DISTRESS NOTED. SIDE RAILS UP X2, CALL LIGHT LEFT WITHIN REACH. WILL CONTINUE PLAN OF CARE.
[2020-06-09] MEDS: AMLODIPINE BESYLATE 5 MG TABLET PO SCH (08:37)
[2020-06-09] MEDS: ATORVASTATIN 10 MG TABLET PO SCH (08:37)
[2020-06-09] MEDS: LOSARTAN POTASSIUM 50 MG TABLET PO SCH (08:38)
[2020-06-09] MEDS: ENOXAPARIN SODIUM 30 MG/0.3 ML DISP.SYRIN SQ SCH (08:46)
[2020-06-09] MEDS: ACETAMINOPHEN 325 MG TABLET PO PRN (11:49)
--- NOTE | 2020-06-09 19:30 | NUR ---
CHANGE OF SHIFT REPORT PT RESTING COMFORTABLY IN BED. NO S/S OR C/O PAIN OR DISTRESS NOTED. SIDE RAILS UP X2, CALL LIGHT LEFT WITHIN REACH. PT KEPT CLEAN, DRY, AND COMFORTABLE. NO SIGNIFICANT CHANGES SINCE PREVIOUS SHIFT. REPORT GIVEN TO NEAL GROVER.
--- NOTE | 2020-06-09 19:41 | NUR ---
RT NOTE PT RECEIVED ON HFNC 60L 60%. CHANGED WATER. SPO2 BETWEEN 91- 92% ON CURRENT SETTING. WILL CONTINUE TO MONITOR T/O SHIFT.
[2020-06-09 20:00] VITALS: BP 121/69
[2020-06-10] VITALS: BP 110/66
[2020-06-10] MEDS: ENOXAPARIN SODIUM 30 MG/0.3 ML DISP.SYRIN SQ SCH ×3 (00:27→21:58)
--- NOTE | 2020-06-10 01:08 | NUR ---
MS2/RN DURING INITIAL SHIFT ROUNDING, PATIENT WAS ON BED AWAKE, ALERT, ORIENTED, COMFORTABLE, NO C/O PAIN, NO DISTRESS NOTED, CALL LIGHT IN REACH. PRESENTLY, PATIENT IS STILL AWAKE, NO CHANGE IN CONDITION. WILL MONITOR.
[2020-06-10 04:00] VITALS: BP 114/69
--- NOTE | 2020-06-10 07:09 | NUR ---
MS2/RN PATIENT IS AWAKE, COMFORTABLE, NO DISTRESS NOTED, ON HIGH FLOW O2, ALL NEEDS ATTENDED AT THIS TIME, WILL CONTINUE TO MONITOR.
[2020-06-10 07:10] LABS: BASOPHILS # (AUTO) 0.1 /CMM (0.0-0.2); EOSINOPHILS % (AUTO) 3.7 % (0.0-6.0); HEMATOCRIT 39 % (39-51); HEMOGLOBIN 12.9 g/dL (13.5-17.5); LYMPHOCYTES # (AUTO) 0.7 /CMM (0.8-4.8); LYMPHOCYTES % (AUTO) 13.4 % (20.0-44.0); MEAN CORPUSCULAR HGB CONC 33 g/dl (31.0-36.0); MEAN CORPUSCULAR VOLUME 87 fL (80-96); MONOCYTES # (AUTO) 0.6 /CMM (0.1-1.30); MONOCYTES % (AUTO) 11.4 % (2.0-12.0); NEUTROPHILS # (AUTO) 3.9 /CMM (1.8-8.9); NEUTROPHILS % (AUTO) 70.5 % (43.0-81.0); PLATELET COUNT (AUTO) 136 /CMM (150-450); RED BLOOD CELL COUNT(AUTO) 4.49 MIL/uL (4.5-6.0); WHITE BLOOD COUNT (AUTO) 5.5 K/uL (4.3-11.0)
[2020-06-10 07:37] LABS: ALBUMIN 2.2 g/dL (3.4-5.0); BILIRUBIN,TOTAL 0.6 mg/dL (0.2-1.0); CALCIUM, SERUM 8.3 mg/dL (8.5-10.1); CREATININE 1.1 mg/dL (0.6-1.3); MAGNESIUM 2.2 mg/dL (1.8-2.4); PHOSPHORUS 2.8 mg/dL (2.5-4.9); POTASSIUM 4.2 mmol/L (3.5-5.1); TOTAL PROTEIN, SERUM 5.8 g/dL (6.4-8.2)
[2020-06-10 08:00] VITALS: BP 115/70
--- NOTE | 2020-06-10 08:00 | NUR ---
COMMUNITY CULTURAL DEVELOPMENT OFFICER OPENING NOTES: PATIENT IS IN BED RESTING, AWAKE AND VERBALLY RESPONSIVE. A/O X4, ABLE TO MAKE NEEDS KNOWN. BREATHING EVEN AND UNLABORED, ON HIGH FLOW OXYGEN AT 50LPM AT FIO2 60%, NO SOB. ON TELEMETRY MONITORING, READING OF SR WITH BBB, HR IN THE 69'S. ABLE TO USE URINAL AND BEDSIDE COMMODE AT BEDSIDE. SAFETY PRECAUTIONS ARE IN PLACE: BED IS LOCKED AND IN THE LOWEST POSITION. SIDE RAILS X2 UP, CALL LIGHT WITHIN REACH. WILL CONTINUE TO MONITOR.
--- NOTE | 2020-06-10 08:10 | NUR ---
PT'S O2 SAT IS 93%
[2020-06-10] MEDS: AMLODIPINE BESYLATE 5 MG TABLET PO SCH (10:02)
[2020-06-10] MEDS: ATORVASTATIN 10 MG TABLET PO SCH (10:02)
[2020-06-10] MEDS: LOSARTAN POTASSIUM 50 MG TABLET PO SCH (10:03)
[2020-06-10 12:00] VITALS: BP 153/87
[2020-06-10 16:00] VITALS: BP 113/69
--- NOTE | 2020-06-10 19:04 | NUR ---
RN CLOSING NOTE PT IS RESTING IN BED. A/O X3 AND COOPERATIVE. PT IS IRISH SPEAKING AND ABLE TO VERBALIZE NEEDS. PT IS CURRENTLY ON 50L O2 WITH FIO2 OF 60% VIA NASAL CANNULA. PT O2 SAT OF 93-95%. NO SIGNS OF RESPIRATORY DISTRESS PRESENT. PT IS AMBULATORY WITH ASSISTANCE. SKIN IS INTACT. SAFETY MEASURES IN PLACE. BED IN LOWEST POSITION. SIDE RAILS RAISED. CALL LIGHT WITHIN REACH.
--- NOTE | 2020-06-10 19:30 | NUR ---
open claims representative opening notes Pt is resting in bed comfortably. Pt is alert and orientedX3. Respiration on high flow 50 LPM FIo2 60% with O2 sat is 95 %. No SOB. No S/S of distress noted. IV site at LAC # 18 is clean, intact and SL. Tele monitor showed SR with BBB Hr at 74 bpm. Safety precautions is maintained. Bed at low position, brakes locked, side rails upX2, hob elevated, urinal at the bedside and call light is within reach. Will continue to monitor.
[2020-06-10 20:00] VITALS: BP_SYST 92; BP_SYST 98; BP_DIAS 70
[2020-06-11] VITALS: BP 121/68
[2020-06-11 04:00] VITALS: BP_SYST 122; BP_DIAS 66; BP_DIAS 74
--- NOTE | 2020-06-11 04:50 | NUR ---
hopper feeder notes Received a phone call from david Bacon regarding Pt's Covid PCR resulted negative. INVESTMENT COUNSELOR is aware and informed. No new orders received. Will continue to monitor.
--- NOTE | 2020-06-11 07:00 | NUR ---
reinforcing steel erector closing notes Pt is resting in bed comfortably. Pt is alert and orientedX3. Respiration on high flow 50 LPM FIO2 50% with O2 sat is 96 %. No SOB. No S/S of distress noted. IV site at LAC # 18 is clean, intact and SL. VS is stable. Afebrile. Tele monitor showed SR with BBB Hr at 65 bpm. Safety precautions is maintained. Bed at low position, brakes locked, side rails upX2, hob elevated, urinal at the bedside and call light is within reach. Will endorse to morning nurse for [facility].
[2020-06-11 07:25] LABS: BASOPHILS # (AUTO) 0.1 /CMM (0.0-0.2); BASOPHILS % (AUTO) 1.2 % (0.0-2.0); EOSINOPHILS % (AUTO) 4.2 % (0.0-6.0); HEMATOCRIT 44 % (39-51); HEMOGLOBIN 14.3 g/dL (13.5-17.5); LYMPHOCYTES # (AUTO) 0.7 /CMM (0.8-4.8); LYMPHOCYTES % (AUTO) 13.8 % (20.0-44.0); MEAN CORPUSCULAR HGB CONC 33 g/dl (31.0-36.0); MEAN CORPUSCULAR VOLUME 88 fL (80-96); MONOCYTES # (AUTO) 0.5 /CMM (0.1-1.30); MONOCYTES % (AUTO) 9.9 % (2.0-12.0); NEUTROPHILS # (AUTO) 3.7 /CMM (1.8-8.9); NEUTROPHILS % (AUTO) 70.9 % (43.0-81.0); PLATELET COUNT (AUTO) 121 /CMM (150-450); RED BLOOD CELL COUNT(AUTO) 4.96 MIL/uL (4.5-6.0); WHITE BLOOD COUNT (AUTO) 5.3 K/uL (4.3-11.0)
[2020-06-11 07:32] LABS: CALCIUM, SERUM 8.9 mg/dL (8.5-10.1); POTASSIUM 4.3 mmol/L (3.5-5.1)
--- NOTE | 2020-06-11 07:40 | NUR ---
BOILERMAKER MECHANIC OPENING NOTES RECEIVED PATIENT IN BED, AWAKE, A/O X4. PATIENT ON HIGH FLOW 50 L 50% FIO2; BREATHING EVEN AND UNLABORED AT THIS TIME. NO SOB NOTED. NO COMPLAINS OF PAIN. LAC IV ACCESS G # 18 SL RESENT AND INTACT. SAFETY PRECAUTIONS IN PLACE; BED IN LOW POSITION AND LOCKED, RAILS UP X2, CALL LIGHT WITHIN REACH. WILL CONTINUE TO MONITOR PATIENT.
[2020-06-11 08:00] VITALS: BP 116/68
[2020-06-11] MEDS: ATORVASTATIN 10 MG TABLET PO SCH (09:16)
[2020-06-11] MEDS: AMLODIPINE BESYLATE 5 MG TABLET PO SCH (09:16)
[2020-06-11] MEDS: LOSARTAN POTASSIUM 50 MG TABLET PO SCH (09:17)
[2020-06-11] MEDS: ENOXAPARIN SODIUM 30 MG/0.3 ML DISP.SYRIN SQ SCH ×2 (09:18→21:56)
[2020-06-11 12:00] VITALS: BP 120/66
[2020-06-11 16:00] VITALS: BP 120/71
--- NOTE | 2020-06-11 19:00 | NUR ---
RECEIVED IN BED ALERT AND ORIENTATED HI FLOW N/C ON AND THE SATS 92 - 96% VERBALIZES HIS NEEDS REVIEWED THE CALL LIGHT WITH HIM SITTING IN HI [place] POSITION WATCHING TV
--- NOTE | 2020-06-11 19:40 | NUR ---
LOTTERY SALES CLERK CLOSING NOTES PATIENT REMAINS IN BED, AWAKE, A/O X4. PATIENT ON HIGH FLOW 50 L 50% FIO2; BREATHING EVEN AND UNLABORED AT THIS TIME. NO SOB NOTED DURING SHIFT. NO COMPLAINS OF PAIN. LAC IV ACCESS G # 18 SL RESENT AND INTACT. ALL NEEDS ATTENDED THROUGHOUT THE DAY. SAFETY PRECAUTIONS IN PLACE; BED IN LOW POSITION AND LOCKED, RAILS UP X2, CALL LIGHT WITHIN REACH. WILL ENDORSE TO PRODUCTION CONTROLLER NURSE.
[2020-06-11 20:00] VITALS: BP 113/68
[2020-06-12] VITALS (8 sets, daily range): BP systolic 100–122; BP diastolic 51–74
--- NOTE | 2020-06-12 05:31 | NUR ---
PATIENT RECEIVED ON HFNC 50L 50%, TOLERATING WELL WITH NO DISTRESS/SOB NOTED. FiO2 TITRATED DOWN TO 45% WITH NO ADVERSE REACTIONS. CONTINUE TO MONITOR PATIENT'S STATUS. Addendum: 06/12/20 at 0535 by CORAL CANELA RT Amended: Links added.
--- NOTE | 2020-06-12 06:16 | NUR ---
CLOSING NOTES: ALERT AND ORIENTATED STANDS BY THE BED AND USE THE URINAL WHEN NEED TO VOID NO EDEMA HIGH FLOW AT 15 LITERS SATS 94%
--- NOTE | 2020-06-12 07:30 | NUR ---
RN OPENING NOTE Patient is resting in bed, A/o x4, showing no signs of acute distress or SOB, saturating 90% on 50.0L 45% Fio2 High Flow. Patient is in no acute distress, sitting up in bed and eating breakfast. Respiratory Therapist at the bedside. Patient denies any pain or discomfort at this time. Bed is in lowest position, side rails x2, in upright position, call light is within reach, fall safety and aspiration precautions enforced. Will continue with plan of care.
[2020-06-12] MEDS: ENOXAPARIN SODIUM 30 MG/0.3 ML DISP.SYRIN SQ SCH ×2 (08:47→20:47)
[2020-06-12] MEDS: LOSARTAN POTASSIUM 50 MG TABLET PO SCH (08:48)
[2020-06-12] MEDS: AMLODIPINE BESYLATE 5 MG TABLET PO SCH (08:48)
[2020-06-12] MEDS: ATORVASTATIN 10 MG TABLET PO SCH (10:36)
--- NOTE | 2020-06-12 18:43 | NUR ---
RN CLOSING NOTE Patient is resting in bed, A/o x4, showing no signs of acute distress or SOB, saturating 90% on 45.0L 40% Fio2 High Flow. Patient is in no acute distress, denies any pain or discomfort at this time. All patient needs met, all due medications given, patient is motivated to self-care. Bed is in lowest position, side rails x2, in upright position, call light is within reach, fall safety and aspiration precautions enforced. Will endorse to marketing effectiveness manager for [employer].
--- NOTE | 2020-06-12 19:45 | NUR ---
CHEESE BLENDER OPENING NOTES PATIENT IN BED A/O X4; ABLE TO MAKE NEEDS KNOWN. ON O2 AT 45LPM VIA HIGHFLOW, FIO2 40%,; TOLERATING SETTINGS WELL WITH NO SOB AT THIS TIME. ON EXTERNAL TELE MONITORING; READS SR WITH BBB AND HR AT 66. IV #18 ON LAC; PATENT AND INTACT. PATIENT DENIES PAIN OR DISCOMFORT AT THIS TIME. SAFETY MEASURES IN PLACE: BED IN LOWEST LOCK POSITION, SIDE RAILS UP X2, CALL LIGHT WITHIN REACH. WILL CONTINUE TO MONITOR.
[2020-06-13] VITALS (8 sets, daily range): BP systolic 118–145; BP diastolic 65–76
--- NOTE | 2020-06-13 06:11 | NUR ---
SILVERWARE ETCHER CLOSING NOTES PATIENT IN BED A/O X4; ABLE TO MAKE NEEDS KNOWN. ON O2 AT 45LPM VIA HIGHFLOW, FIO2 40%,; TOLERATING SETTINGS WELL WITH NO SOB AT THIS TIME. ON EXTERNAL TELE MONITORING; READS SR WITH BBB AND HR AT 68. IV #18 ON LAC; PATENT AND INTACT. SAFETY MEASURES IN PLACE: BED IN LOWEST LOCK POSITION, SIDE RAILS UP X2, CALL LIGHT WITHIN REACH. WILL ENDORSE TIMOTEO TO ONCOMING MORNING RN.
--- NOTE | 2020-06-13 07:30 | NUR ---
RN OPENING NOTE Patient is resting in bed, A/o x4, showing no signs of acute distress or SOB, saturating 90% on 45.0L 40% Fio2 High Flow upon rest. During exertion, patient will desaturate to 85%. Patient denies any pain or discomfort at this time. Patient is motivated to self-care. Bed is in lowest position, side rails x2, in upright position, call light is within reach, fall safety and aspiration precautions enforced. Will continue with plan of care.
[2020-06-13] MEDS: LOSARTAN POTASSIUM 50 MG TABLET PO SCH (09:41)
[2020-06-13] MEDS: ENOXAPARIN SODIUM 30 MG/0.3 ML DISP.SYRIN SQ SCH (09:42)
[2020-06-13] MEDS: ATORVASTATIN 10 MG TABLET PO SCH (09:42)
[2020-06-13] MEDS: AMLODIPINE BESYLATE 5 MG TABLET PO SCH (09:42)
--- NOTE | 2020-06-13 19:09 | NUR ---
RN CLOSING NOTE Patient is resting in bed, A/o x4, showing no signs of acute distress or SOB, saturating 92% on 45.0L 40% Fio2 High Flow upon rest. During exertion, patient will desaturate to 85%. Patient denies any pain or discomfort at this time. Patient is motivated to self-care. Bed is in lowest position, side rails x2, in upright position, call light is within reach, fall safety and aspiration precautions enforced. Will endorse to immersion metal cleaner for TIMOTEO.
--- NOTE | 2020-06-13 20:07 | NUR ---
HIDE PULLER OPENING NOTES PATIENT IN BED A/O X4; ABLE TO MAKE NEEDS KNOWN. ON O2 AT 45LPM VIA HIGHFLOW, FIO2 40%,; TOLERATING SETTINGS WELL WITH NO SOB AT THIS TIME. ON EXTERNAL TELE MONITORING; READS SR WITH BBB AND HR AT 71 IV #18 ON LAC; PATENT AND INTACT. PATIENT DENIES PAIN OR DISCOMFORT AT THIS TIME. SAFETY MEASURES IN PLACE: BED IN LOWEST LOCK POSITION, SIDE RAILS UP X2, CALL LIGHT WITHIN REACH. WILL CONTINUE TO MONITOR.
[2020-06-14] VITALS (10 sets, daily range): BP systolic 108–165; BP diastolic 54–80
--- NOTE | 2020-06-14 06:27 | NUR ---
TRAIN BRAKE OPERATOR CLOSING NOTES PATIENT IN BED A/O X4; ABLE TO MAKE NEEDS KNOWN. ON O2 AT 45LPM VIA HIGHFLOW, FIO2 40%,; TOLERATING SETTINGS WELL; NOTED WITH SOB DURING ADL'S. O2SAT RANGES FROM FROM 100 - 77% . ON EXTERNAL TELE MONITORING; READS SR WITH BBB AND HR AT 61. IV #18 ON LAC; PATENT AND INTACT. SAFETY MEASURES IN PLACE: BED IN LOWEST LOCK POSITION, SIDE RAILS UP X2, CALL LIGHT WITHIN REACH. WILL ENDORSE TIMOTEO TO ONCOMING MORNING RN.
--- NOTE | 2020-06-14 07:25 | NUR ---
PLUMBER PIPE FITTING OPENING NOTES PATIENT IS RESTING IN BED, AWAKE AND VERBALLY RESPONSIVE. A/O X4, ABLE TO MAKE NEEDS KNOWN. BREATHING EVEN AND UNLABORED, ON HIGHFLOW NC W/ O2 AT 45LPM, FIO2 40%. ON TELE MONITORING, READING OF SR WITH BBB, HR IN THE 60'S. IV LINE ON LAC #18 PATENT AND INTACT. SAFETY MEASURES IN PLACE: BED LOCKED AND ON LOWEST POSITION, SIDE RAILS UP X2, CALL LIGHT WITHIN REACH. WILL CONTINUE TO MONITOR.
[2020-06-14] MEDS: ATORVASTATIN 10 MG TABLET PO SCH (08:39)
[2020-06-14] MEDS: LOSARTAN POTASSIUM 50 MG TABLET PO SCH (08:40)
[2020-06-14] MEDS: AMLODIPINE BESYLATE 5 MG TABLET PO SCH (08:40)
[2020-06-14] MEDS: ENOXAPARIN SODIUM 30 MG/0.3 ML DISP.SYRIN SQ SCH (08:41)
--- NOTE | 2020-06-14 10:36 | NUR ---
RN NOTES PATIENT'S O2 SUPPLEMENTATION SWITCHED TO NASAL CANNULA AT THIS TIME AND TITRATED TO 5LPM; CURRENT O2 SAT IS BETWEEN 91-95%. NO COMPLAINT OF SOB NOR RESPIRATORY DISTRESS. PATIENT TOLERATES AT THIS TIME, BUT ADVISED TO CALL NURSE/RT IF UNABLE TO TOLERATE NASAL CANNULA. WILL CONTINUE TO MONITOR.
--- NOTE | 2020-06-14 15:41 | NUR ---
RN NOTES PATIENT STILL ON NASAL CANNULA AT 5LPM, NO COMPLAINT OF SOB NOR RESPIRATORY DISTRESS, O2 SAT RANGES BETWEEN 92-96%. DESATURATION NOTED WHEN PATIENT USED THE BEDSIDE COMMODE, NOTED TO BE IN THE MID 80'S, BUT PATIENT ABLE TO TOLERATE. RESATURATED TO LOW- TO MID-90'S UPON REST. WILL CONTINUE TO MONITOR.
--- NOTE | 2020-06-14 18:55 | NUR ---
MEDICAL CASE MANAGER CLOSING NOTES PATIENT IS IN BED, AWAKE AND VERBALLY RESPONSIVE. A/O X4, ABLE TO MAKE NEEDS KNOWN. BREATHING EVEN AND UNLABORED, CURRENTLY TOLERATING O2 VIA NC AT 5LPM; HIGHFLOW NC AVAILABLE. ON TELE MONITORING, READING OF SR WITH BBB, HR IN THE 70'S. IV LINE ON LAC #18 PATENT AND INTACT. ABLE TO USE URINAL AND BEDSIDE COMMODE W/ ASSISTANCE. SAFETY MEASURES MAINTAINED: BED LOCKED AND ON LOWEST POSITION, SIDE RAILS UP X2, CALL LIGHT WITHIN REACH. WILL ENDORSE TO DRAWER IN RN FOR TIMOTEO.
--- NOTE | 2020-06-14 18:57 | NUR ---
RN NOTES BARREL POLISHER, JING, CALLED AND INFORMED ABOUT PATIENT'S NEGATIVE COVID RESULT. PER BARREL POLISHER, OK TO TRANSFER PATIENT TO [facility]. TENNIS CAMP INSTRUCTOR TO GIVE REPORT. WILL ENDORSE TO INCOMING TENNIS CAMP INSTRUCTOR RN FOR TRANSFER.
--- NOTE | 2020-06-14 19:30 | NUR ---
LITHOGRAPHIC PHOTOGRAPHER OPENING NOTES: RECEIVED PT IN BED, AWAKE A/O X4. NO S/S OF DISTRESS NOTED. NO COMPLAIN OF PAIN. CALL LIGHT WITHIN REACH. BED ALARM ON. BED IN LOWEST AND LOCKED POSITION. ON HIGH FLOW 40L/MIN AND 40% FIO2 SATING 93%.
--- NOTE | 2020-06-14 20:46 | NUR ---
REPORTS GIVEN TO REILLY CHAVEZ FOR CONTINUITY OF CARE. PT WILL BE TRANSFERRED TO ROOM 306.
--- NOTE | 2020-06-14 21:05 | NUR ---
RT PT TRANSPORTED ON NRB TO ROOM 306. HFNC SET UP IN ROOM PLUGGED INTO RED OUTLET. PT PLACED ON HFNC, WITH SPO2 92%. NO SOB OR RESPIRATORY DISTRESS NOTED AT THIS TIME.
--- NOTE | 2020-06-14 21:10 | NUR ---
vice president commercial bank notes Received Pt from REILLY Hitchcock. Pt arrived at the unit with RT and RN. Pt is alert and orientedX4. Respiration on high flow 40 L fio2 40 % with O2 sat is 93%. VS is stable. Afebrile. Tele monitor showed SR with BBB hr at 70. IV site at LAC# 18 is clean, intact and flushes easily. Safety precautions is maintained. Bed at low position, brakes locked, side rails upX2, urinal at the bed side, hob elevated and call light is within reach. Will continue to monitor.
[2020-06-15] VITALS: BP 116/69
[2020-06-15 00:10] VITALS: BP 116/69
[2020-06-15 04:24] VITALS: BP 117/70
[2020-06-15 06:05] LABS: CREATININE 1.2 mg/dL (0.6-1.3); POTASSIUM 4.4 mmol/L (3.5-5.1)
[2020-06-15 06:06] LABS: BASOPHILS # (AUTO) 0.1 /CMM (0.0-0.2); BASOPHILS % (AUTO) 1.1 % (0.0-2.0); EOSINOPHILS % (AUTO) 7.3 % (0.0-6.0); HEMATOCRIT 39 % (39-51); LYMPHOCYTES # (AUTO) 0.9 /CMM (0.8-4.8); LYMPHOCYTES % (AUTO) 18.3 % (20.0-44.0); MEAN CORPUSCULAR HGB CONC 34 g/dl (31.0-36.0); MEAN CORPUSCULAR VOLUME 88 fL (80-96); MONOCYTES # (AUTO) 0.5 /CMM (0.1-1.30); MONOCYTES % (AUTO) 10.4 % (2.0-12.0); NEUTROPHILS % (AUTO) 62.9 % (43.0-81.0); PLATELET COUNT (AUTO) 99 /CMM (150-450); RED BLOOD CELL COUNT(AUTO) 4.42 MIL/uL (4.5-6.0); WHITE BLOOD COUNT (AUTO) 4.7 K/uL (4.3-11.0)
--- NOTE | 2020-06-15 06:51 | NUR ---
target man closing notes Pt is resting in bed comfortably. Pt is alert and orientedX4. Respiration on high flow 40 LPM fio2 40% with O2 sat is 94%. VS is stable. Afebrile. Tele monitor showed SR with BBB hr at 63. IV site at LAC# 18 is clean, intact and flushes easily, SL. Kept Pt clean, dry and comfortable. Safety precautions is maintained. Bed at low position, brakes locked, side rails upX2, urinal at the bed side, hob elevated and call light is within reach. Will endorse to morning nurse for TIMOTEO.
--- NOTE | 2020-06-15 07:15 | NUR ---
RN OPENING NOTES RECEIVED PT RESTING IN BED. A/O X4. NO S/S OF RESPIRATORY DISTRESS. ON HIGH FLOW O2 40 LPM FIO2 40% SATURATING AT 99%. IV LAC #18 G SL. PROVIDED SAFETY MEASURES. BED IN LOWEST POSITION, BRAKES LOCKED. SIDE RAILS UP X2. CALL LIGHT WITHIN REACH. WILL CONTINUE PLAN OF CARE.
[2020-06-15 08:00] VITALS: BP 120/72
[2020-06-15] MEDS: AMLODIPINE BESYLATE 5 MG TABLET PO SCH (08:54)
[2020-06-15] MEDS: LOSARTAN POTASSIUM 50 MG TABLET PO SCH (08:54)
[2020-06-15] MEDS: ATORVASTATIN 10 MG TABLET PO SCH (08:54)
[2020-06-15] MEDS: ENOXAPARIN SODIUM 30 MG/0.3 ML DISP.SYRIN SQ SCH (09:00)
[2020-06-15 16:00] VITALS: BP 120/74
--- NOTE | 2020-06-15 18:10 | NUR ---
MS RN CLOSING NOTES PT RESTING IN BED. A/O X4. NO SOB NOTED. NO S/S OF RESPIRATORY DISTRESS. NC ON 6 LPM. SATURATING AT 97-99 %. IV LAC #18 G SL. ROUTINE MEDS WERE GIVEN ORDERED. PROVIDED SAFETY MEASURES. BED IN LOWEST POSITION, BRAKES LOCKED. SIDE RAILS UP X2. CALL LIGHT WITHIN REACH. WILL ENDORSE TO DOG TRACK KENNEL MANAGER FOR [employer]OTEO.
--- NOTE | 2020-06-15 19:30 | NUR ---
MS/RN OPENING NOTES RECEIVED PATIENT IN BED RESTING. PATIENT IS ALERT AND ORIENTED X 4. PATIENTS BREATHING IS EVEN AND UNLABORED. NO SIGNS OF RESPIRATORY DISTRESS OR SOB NOTED. PATIENT HAS IV ACCESS ON LEFT AC INTACT AND FLUSHING WELL. PATIENT STATES NO PAIN AT THIS TIME. SAFETY MEASURES ARE IN PLACE, BED IS LOCKED AND PLACED IN THE LOW POSITION, SIDE RAILS UP X 2, CALL LIGHT IS WITHIN REACH. WILL CONTINUE TO MONITOR THROUGH OUT SHIFT.
[2020-06-15 20:00] VITALS: BP 121/69
--- NOTE | 2020-06-16 06:45 | NUR ---
MS/RN CLOSING NOTES PATIENT IN BED SLEEPING. PATIENT IS ALERT AND ORIENTED X 4. PATIENTS BREATHING IS EVEN AND UNLABORED. NO SIGNS OF RESPIRATORY DISTRESS OR SOB NOTED. PATIENT HAS IV ACCESS ON LEFT AC INTACT AND FLUSHING WELL. ALL PATIENTS NEEDS HAVE BEEN MET DURING SHIFT. SAFETY MEASURES ARE IN PLACE, BED IS LOCKED AND PLACED IN THE LOW POSITION, SIDE RAILS UP X 2, CALL LIGHT IS WITHIN REACH. WILL ENDORSE CARE TO DAY SHIFT NURSE.
--- NOTE | 2020-06-16 07:32 | NUR ---
MS RN OPENING NOTES RECEIVED PATIENT AWAKE IN BED IN NO ACUTE SIGNS OF DISTRESS. A/O X 4. ABLE TO MAKE NEEDS KNOWN, DENIES PAIN OR ANY DISCOMFORTS AT THIS TIME. ON 02 VIA N/C AT 6LPM, TOLERATING WELL WITH NO SOB NOTED, SP02 95-96% AT THIS TIME. IV ACCESS ON LEFT AC INTACT, PATENT AND FLUSHING WELL. SAFETY MEASURES ARE IN PLACE; BED IS LOCKED AND IN THE LOW POSITION, SIDE RAILS UP X 2 AND CALL LIGHT IS WITHIN REACH. WILL CONTINUE TO MONITOR PT.
[2020-06-16 08:00] VITALS: BP 121/74
[2020-06-16] MEDS: AMLODIPINE BESYLATE 5 MG TABLET PO SCH (09:10)
[2020-06-16] MEDS: ATORVASTATIN 10 MG TABLET PO SCH (09:10)
[2020-06-16] MEDS: LOSARTAN POTASSIUM 50 MG TABLET PO SCH (09:11)
[2020-06-16] MEDS: ENOXAPARIN SODIUM 30 MG/0.3 ML DISP.SYRIN SQ SCH (09:12)
--- NOTE | 2020-06-16 11:18 | NUR ---
RN NOTES PT SEEN AND EVALUATED BY DR LIMA THIS MORNING AND PLACED PT ON 02 N/C AT 4LPM FROM 6LPM, TOLERATING WELL WITH SP02 OF 94-95%NOTED. AFTER PHYSICAL EVALUATION DONE, PT C/O SOB AND SP02 WENT DOWN BELOW 90%. PT PLACED BACK TO 6LPM VIA N/C AND SP02 WENT BACK TO 95-95%. WILL CONTINUE TO MONITOR.
[2020-06-16] MEDS: GUAIFENESIN/CODEINE 10 ML UDC PO PRN ×2 (13:12→19:23)
[2020-06-16 16:00] VITALS: BP 115/59
--- NOTE | 2020-06-16 18:39 | NUR ---
MS RN CLOSING NOTES PATIENT IN BED AWAKE AND WATCHING TV AT THIS TIME. A/O X 4. ABLE TO MAKE NEEDS KNOWN. ON 02 VIA N/C AT 6LPM, TOLERATING WELL, BREATHING EVEN AND UNLABORED. IV SL ON LEFT AC INTACT, PATENT AND FLUSHING WELL. ALL NEEDS AND CARE ATTENDED WELL. SAFETY MEASURES IN PLACE: BED IS LOCKED AND IN THE LOW POSITION, SIDE RAILS UP X 2 AND CALL LIGHT IS WITHIN REACH. 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
[2020-06-16 20:00] VITALS: BP 108/62
--- NOTE | 2020-06-16 20:00 | NUR ---
ABSTRACT SEARCHER INITIAL NOTES RECEIVED PATIENT IN BED RESTING. PATIENT IS ALERT AND ORIENTED X 4. PATIENT BREATHING IS EVEN AND UNLABORED. NO SIGNS OF RESPIRATORY DISTRESS NOTED. HE 'S ON 6 LITERS O2 VIA NASAL CANULA WITH HUMIDIFIER FOR PT COMFORT. HE ALSO ON CONTINOUS PULSE OX TO MONITOR HE'S OXYGEN LEVEL,PATIENT HAS IV ACCESS ON LEFT AC #18G SL. SAFETY MEASURES ARE IN PLACED, BED IS LOCKED AND PLACED IN THE LOWEST POSITION, SIDE RAILS UP X 2, CALL LIGHT WITHIN REACH. WILL CONTINUE TO MONITOR THROUGH OUT SHIFT.
--- NOTE | 2020-06-17 07:07 | NUR ---
MS DIRECTOR RECORDS MANAGEMENT CLOSING NOTES PT RESTING BUT WOKE UP EASILY WITHOUT ANY DISTRESS NOTED. BREATHING EVEN AND UNLABORED. STABLE THROUGHOUT THE NIGHT. KEPT HIM WARM AND COMFORTABLE AT ALL TIMES. STILL ON SITTING POSITION WITH SIDE RAILS X2 UP. WILL ENDORSE TO AM NURSE .
--- NOTE | 2020-06-17 07:28 | NUR ---
MS RN OPENING NOTES RECEIVED PATIENT IN BED AWAKE, A/O X 4. ABLE TO MAKE NEEDS KNOWN, DENIES PAIN OR ANY DISCOMFORTS AT THIS TIME. 02 VIA N/C AT 6LPM TITRATED TO 4LPM, TOLERATING WELL WITH NO SOB NOTED AT THIS TIME. IV SL ON LEFT AC G#18 INTACT, PATENT AND FLUSHING WELL. SAFETY MEASURES ARE IN PLACE: BED IS LOCKED AND IN LOW POSITION, SIDE RAILS UP X 2 AND CALL LIGHT IS WITHIN REACH. WILL CONTINUE TO MONITOR PT.
[2020-06-17 08:00] VITALS: BP 112/66
[2020-06-17 08:05] LABS: BASOPHILS # (AUTO) 0.1 /CMM (0.0-0.2); BASOPHILS % (AUTO) 1.1 % (0.0-2.0); EOSINOPHILS % (AUTO) 7.9 % (0.0-6.0); HEMATOCRIT 40 % (39-51); HEMOGLOBIN 13.3 g/dL (13.5-17.5); LYMPHOCYTES % (AUTO) 19.3 % (20.0-44.0); MEAN CORPUSCULAR HGB CONC 33 g/dl (31.0-36.0); MEAN CORPUSCULAR VOLUME 87 fL (80-96); MONOCYTES # (AUTO) 0.5 /CMM (0.1-1.30); MONOCYTES % (AUTO) 10.9 % (2.0-12.0); NEUTROPHILS # (AUTO) 3.1 /CMM (1.8-8.9); NEUTROPHILS % (AUTO) 60.8 % (43.0-81.0); PLATELET COUNT (AUTO) 118 /CMM (150-450); RED BLOOD CELL COUNT(AUTO) 4.57 MIL/uL (4.5-6.0)
[2020-06-17] MEDS: ATORVASTATIN 10 MG TABLET PO SCH (08:33)
[2020-06-17 08:34] VITALS: BP 112/66
[2020-06-17] MEDS: LOSARTAN POTASSIUM 50 MG TABLET PO SCH (08:34)
[2020-06-17] MEDS: AMLODIPINE BESYLATE 5 MG TABLET PO SCH (08:34)
[2020-06-17] MEDS: ENOXAPARIN SODIUM 30 MG/0.3 ML DISP.SYRIN SQ SCH (08:36)
[2020-06-17] MEDS ORDERED: ASPI-1169 PO (09:24)
[2020-06-17] MEDS: GUAIFENESIN/CODEINE 10 ML UDC PO PRN (11:45)
--- NOTE | 2020-06-17 15:22 | NUR ---
RN DISCHARGED NOTES PT DISCHARGED TO [facility] IN STABLE CONDITION. A/O X4 AND ABLE TO MAKE NEEDS KNOWN. ALL BELONGINGS ACCOUNTED FOR AND SIGNED FORM. SKIN IS INTACT. IV ACCESS ON LAC REMOVED WITH NO ACTIVE BLEEDING NOTED, DRY PRESSURE DRESSING APPLIED TO SITE. CALLED AND REPORT GIVEN TO RNS STEFANIE. HEALTH TEACHINGS GIVEN TO PT AND VERBALIZED UNDERSTANDING. PT'S DAUGHTER DENVER INFORM OF PT'S TRANSFER. PT LEFT UNIT AT 1445 VIA GURNEY AND ON VIA N/C AT 4LPM ACCOMPANIED BY 2 EMT'S. MD AND CHARGE NURSE AWARE OF DISCHARGE.
== END 2020-06-17 14:30 | DRG 177 ==
LOC: ER 10:04 → TRANSITION 18:49 → TELE2 05-26 01:14 → TELE 06-14 22:08 → MED 06-15 11:43
PROVIDERS: ADMIT Nurse Practitioner Acute Care; ATTEND Internal Medicine
PROC: XW033E5 Introduction of Remdesivir Anti-infective into Peripheral Vein, Percutaneous Approach, New Technology Group 5 (ICD-10-PCS; principal; 2020-05-25)
PROC: XW13325 Transfusion of Convalescent Plasma (Nonautologous) into Peripheral Vein, Percutaneous Approach, New Technology Group 5 (ICD-10-PCS; 2020-05-26)
DX: U07.1 COVID-19 (principal); J12.89 Other viral pneumonia; J96.01 Acute respiratory failure with hypoxia; N17.0 Acute kidney failure with tubular necrosis; J12.82 Pneumonia due to coronavirus disease 2019; J15.9 Unspecified bacterial pneumonia; E87.2 Acidosis; I12.9 Hypertensive chronic kidney disease with stage 1 through stage 4 chronic kidney disease, or unspecified chronic kidney disease; E78.00 Pure hypercholesterolemia, unspecified; E78.5 Hyperlipidemia, unspecified; Z85.828 Personal history of other malignant neoplasm of skin; N18.9 Chronic kidney disease, unspecified; M19.90 Unspecified osteoarthritis, unspecified site; G89.29 Other chronic pain; N13.9 Obstructive and reflux uropathy, unspecified
CPT/HCPCS: 36415; 36600; 71045-TC; 80048-TC; 80053-TC; 80076-TC; 81001; 82248-TC; 82550-TC; 82728-TC; 82803-TC; 83605-TC; 83615-TC; 83735-TC; 83880; 84100-TC; 84484-TC; 85025-TC; 85378-TC; 85385-TC; 85610-TC; 85730-TC; 86140-TC; 86850-TC; 87040-TC; 87081-TC; 87086-TC; 94760-TC; 94762-TC; 94799-TC; 97116-TC; 97530-TC; 99082-TC; A4216; A4217; G0378; J0456; J0696; J1100; J1650; J7030; J7040; J7050; J7060; P9017-BL; U0003

== ENCOUNTER 2021-07-19 17:26 | Emergency (ER) | payer MEDICARE, BC ==
[~2021-07-19] VITALS: Ht 177.8 cm; Wt 77.1 kg
[~2021-07-19 17:26] MED LIST: ASPI-1169 PO; ATOR20TA PO; OLME40TA12 PO
--- NOTE | 2021-07-19 20:02 | NUR ---
Patient discharged to home in stable condition. Written and verbal after care instructions given. Patient verbalizes understanding of instruction.
[2021-07-19 20:03] VITALS: BP 134/80
== END 2021-07-19 20:04 | disposition home or self-care (01) ==
LOC: ER 17:31
DX: S00.83XA Contusion of other part of head, initial encounter (principal); S00.31XA Abrasion of nose, initial encounter; I10 Essential (primary) hypertension; E78.00 Pure hypercholesterolemia, unspecified; Z79.82 Long term (current) use of aspirin; Z79.899 Other long term (current) drug therapy; V49.49XA Driver injured in collision with other motor vehicles in traffic accident, initial encounter; Y93.89 Activity, other specified; Y92.413 State road as the place of occurrence of the external cause; Y99.8 Other external cause status
CPT/HCPCS: 70450-TC; 70486-TC